=== PATIENT | male | born 1960 | race Hispanic/Latino ===

== ENCOUNTER 2017-09-24 12:13 | Inpatient (IN) | payer OTHER ==
[~2017-09-24] VITALS: Ht 180.3 cm; Wt 75.1 kg
[~2017-09-24 12:13] MED LIST: ASPI-1012 PO; CELE200 PO; DARU1TAB PO; EMTR1TAB12 PO; FERR324T10 PO; LACT1CAP58 PO; OXYC5 PO; PREG25 PO; Polyethylene Glycol 3350 PO; RITO100T PO; VANC125C12 PO
[2017-09-24] MEDS ORDERED: SODIUM CHLORIDE 0.9% 1000ML 1,000 ML IV ONE ×3 (12:58→16:03)
[2017-09-24 13:08] LABS: BASOPHILS % (AUTO) 0.4 % (0.0-5.0); EOSINOPHILS % (AUTO) 0.4 % (0.0-8.0); HEMATOCRIT 37.2 % (42-54); LYMPHOCYTES % (AUTO) 20.4 % (21.0-51.0); MEAN CORPUSCULAR HEMOGLOBIN 35.7 pg (27.0-33.0); MEAN CORPUSCULAR HGB CONC 34.3 g/dL (32.0-36.0); MEAN CORPUSCULAR VOLUME 104.2 fL (79-99); MONOCYTES % (AUTO) 16.8 % (3.0-13.0); PLATELET COUNT (AUTO) 309 K/uL (130-400); RED BLOOD CELL COUNT(AUTO) 3.57 MIL/uL (4.50-6.20); RED CELL DISTRIBUTION WIDTH 14.1 % (11.0-15.5); WHITE BLOOD COUNT (AUTO) 9.7 K/uL (4.8-10.8)
[2017-09-24 13:20] LABS: POTASSIUM 3.8 mmol/L (3.5-5.1)
[2017-09-24 13:21] LABS: RAPID GROUP A STREP NEGATIVE (NEGATIVE)
[2017-09-24 13:25] LABS: ALBUMIN 3.1 g/dL (3.5-5.0); BILIRUBIN,TOTAL 1.1 mg/dL (0.2-1.0)
[2017-09-24 13:41] LABS: APPEARANCE,URINE Clear (CLEAR); BILIRUBIN,URINE Negative (NEGATIVE); COLOR,URINE Dark Yellow (YELLOW); GLUCOSE, URINE (UA) TRACE mg/dL (NEGATIVE); KETONES,URINE Negative (NEGATIVE); LEUKOCYTE ESTERASE ,URINE Negative (NEGATIVE); NITRATE,URINE Negative (NEGATIVE); OCCULT BLOOD,URINE Small (NEGATIVE); PROTEIN,URINE POS 2+ (NEGATIVE)
[2017-09-24 13:58] LABS: BACTERIA,URINE Rare /HPF (None Seen); MUCUS,URINE Rare LPF (None Seen); RBC,URINE 0-1 /HPF (0-1); SQUAMOUS EPITHELIAL CELL,UR Rare /LPF (0-2)
[2017-09-24] MEDS: SODIUM CHLORIDE 0.9% 1000ML 1,000 ML IV SCH ×2 (14:33→23:50)
[2017-09-24] MEDS ORDERED: ACETAMINOPHEN 325 MG TAB PO PRN ×2 (14:45)
[2017-09-24] MEDS ORDERED: MAG HYDROX/AL HYDROX/SIMETH ES 30 ML SUSP UDCUP PO PRN (14:45)
[2017-09-24] MEDS ORDERED: ONDANSETRON HCL 4 MG/2 ML VIAL ONE (14:50)
[2017-09-24] MEDS ORDERED: ZOSYN 3.375GM+NS 50ML 50 ML IV ONE (14:50)
[2017-09-24] MEDS ORDERED: KETOROLAC TROMETHAMINE 30MG/ML ONE (14:51)
[2017-09-24] MEDS ORDERED: MORPHINE SULFATE 4 MG/1ML SYG ONE (14:51)
[2017-09-24 17:09] VITALS: BP 131/78
[2017-09-24 19:30] VITALS: BP 115/72
[2017-09-24] MEDS: ONDANSETRON HCL 4 MG/2 ML VIAL IV PRN (20:41)
[2017-09-24] MEDS: LEVOFLOXACIN 500 MG/D5W 100 ML 100 ML IV SCH (20:41)
[2017-09-24] MEDS: MEPERIDINE-PF 25 MG/ML SYG IVP PRN (20:42)
[2017-09-24] MEDS ORDERED: LISI-617 PO (20:57)
[2017-09-24 23:30] VITALS: BP 107/69
[2017-09-24] MEDS ORDERED: DEXTROSE 50%-WATER 50 ML DISP.SYRIN IV PRN (23:30)
[2017-09-24] MEDS ORDERED: POTASSIUM CHLORIDE 10% ELIXIR 20 MEQ/15 ML UDCUP PO PRN (23:30)
[2017-09-24] MEDS ORDERED: GLUCAGON 1MG KIT 1 MG ML IM PRN (23:30)
[2017-09-24] MEDS ORDERED: HYDRALAZINE HCL 20 MG/ML VIAL IV PRN (23:30)
[2017-09-25] VITALS (25 sets, daily range): BP systolic 116–188; BP diastolic 56–98
[2017-09-25] MEDS: ONDANSETRON HCL 4 MG/2 ML VIAL IV PRN ×2 (03:58→22:11)
[2017-09-25] MEDS: MEPERIDINE-PF 25 MG/ML SYG IVP PRN (03:59)
[2017-09-25] MEDS: SODIUM CHLORIDE 0.9% 1000ML 1,000 ML IV SCH ×4 (04:02→20:33)
[2017-09-25 05:33] LABS: HEMATOCRIT 29.8 % (42-54); MEAN CORPUSCULAR HEMOGLOBIN 35.7 pg (27.0-33.0); MEAN CORPUSCULAR HGB CONC 34.3 g/dL (32.0-36.0); MEAN CORPUSCULAR VOLUME 103.9 fL (79-99); PLATELET COUNT (AUTO) 196 K/uL (130-400); RED BLOOD CELL COUNT(AUTO) 2.86 MIL/uL (4.50-6.20); RED CELL DISTRIBUTION WIDTH 13.7 % (11.0-15.5); WHITE BLOOD COUNT (AUTO) 5.6 K/uL (4.8-10.8)
[2017-09-25 05:46] LABS: ALBUMIN 2.3 g/dL (3.5-5.0); BILIRUBIN,TOTAL 0.8 mg/dL (0.2-1.0); CREATININE 0.8 mg/dL (0.5-1.5); POTASSIUM 3.8 mmol/L (3.5-5.1); TOTAL PROTEIN, SERUM 6.4 g/dL (6.0-8.3)
[2017-09-25] MEDS: INSULIN HUMULIN R 100 UNIT/ML 3ML SQ SCH ×2 (05:50→18:00)
[2017-09-25 05:59] LABS: HEMOGLOBIN A1C 5.2 % (4.0-6.0)
[2017-09-25] MEDS ORDERED: INSULIN HUMULIN R 100 UNIT/ML 3ML SQ SCH (07:30)
[2017-09-25] MEDS: PANTOPRAZOLE SODIUM 40 MG TABLET.DR PO SCH (09:00)
[2017-09-25] MEDS ORDERED: PANTOPRAZOLE SODIUM 40 MG TABLET.DR PO SCH (09:00)
[2017-09-25] MEDS ORDERED: HEPARIN SODIUM 1000UNIT/ML 10ML VIAL ONE (10:08)
[2017-09-25] MEDS ORDERED: DEXAMETHASONE SOD PHOSPHATE 10MG/ML 1ML VIAL ONE (10:41)
[2017-09-25] MEDS ORDERED: PROPOFOL 10 MG/ML 20ML VIAL IV ONE (10:41)
[2017-09-25] MEDS ORDERED: LIDOCAINE HCL MPF 1% 5ML VIAL ONE (10:41)
[2017-09-25] MEDS ORDERED: MIDAZOLAM HCL 1 MG/ML 2ML VIAL ONE (10:41)
[2017-09-25] MEDS ORDERED: LIDOCAINE PF 2% 5ML ABBOJECT ONE (10:41)
[2017-09-25] MEDS ORDERED: FENTANYL CITRATE PF 50 MCG/1 ML 2ML VIAL ONE (10:42)
[2017-09-25] MEDS ORDERED: ROCURONIUM BROMIDE 10MG/1ML 5ML VL ONE ×3 (10:44→13:58)
[2017-09-25] MEDS ORDERED: NEOSTIGMINE METHYLSULFATE 1MG/ML IV ONE (10:44)
[2017-09-25] MEDS ORDERED: GLYCOPYRROLATE 0.2 MG/ML 5 ML VIAL ONE (10:44)
[2017-09-25] MEDS: LEVOFLOXACIN 500 MG/D5W 100 ML 100 ML IV SCH ×2 (11:15→14:45)
[2017-09-25] MEDS ORDERED: FENTANYL CITRATE PF 50 MCG/1 ML 5ML AMP IV ONE ×2 (11:23→12:47)
[2017-09-25 13:30] LABS: HEMATOCRIT 30.3 % (42-54)
[2017-09-25 13:39] LABS: INR 1.1 (0.85-1.15); PARTIAL THROMBOPLASTIN TIME 31.3 SEC (26.3-35.5); PROTHROMBIN TIME 11.5 SEC (9.6-11.6)
[2017-09-25] MEDS ORDERED: MORPHINE SULFATE 4 MG/1ML SYG IV PRN (15:15)
[2017-09-25] MEDS ORDERED: NALOXONE HCL 0.4 MG/1 ML ML ONE (15:15)
[2017-09-25 16:02] LABS: MEAN CORPUSCULAR HEMOGLOBIN 35.6 pg (27.0-33.0); MEAN CORPUSCULAR HGB CONC 33.5 g/dL (32.0-36.0); MEAN CORPUSCULAR VOLUME 106.1 fL (79-99); PLATELET COUNT (AUTO) 282 K/uL (130-400); WHITE BLOOD COUNT (AUTO) 10.1 K/uL (4.8-10.8)
[2017-09-25 16:08] LABS: CREATININE 0.9 mg/dL (0.5-1.5); POTASSIUM 4.2 mmol/L (3.5-5.1)
[2017-09-25] MEDS: PROPOFOL 1000 MG/100 ML IV PRN ×2 (18:28→21:35)
[2017-09-25 19:53] LABS: ABG BASE EXCESS -12.4 mmol/L (-2.0-3.0); ABG HCO3 11.8 mmol/L (21.0-28.0); ABG OXYGEN SATURATION 98.8 % (95.0-99.0); ABG PCO2 24 mmHg (35-48)
[2017-09-25] MEDS: METRONIDAZOLE 500MG/100ML BAG 100 ML IV SCH (21:32)
[2017-09-25] MEDS: D5W-1/2 NS/20MEQ KCL 1,000 ML IV SCH (22:06)
[2017-09-26] VITALS (24 sets, daily range): BP systolic 126–179; BP diastolic 63–113
[2017-09-26] MEDS: PROPOFOL 1000 MG/100 ML IV PRN ×4 (00:49→07:57)
[2017-09-26] MEDS: SODIUM CHLORIDE 0.9% 1000ML 1,000 ML IV SCH ×3 (02:00→11:05)
[2017-09-26 04:05] LABS: BASOPHILS % (AUTO) 0.1 % (0.0-5.0); HEMATOCRIT 29.8 % (42-54); LYMPHOCYTES % (AUTO) 8.9 % (21.0-51.0); MEAN CORPUSCULAR HEMOGLOBIN 36.8 pg (27.0-33.0); MEAN CORPUSCULAR VOLUME 104.9 fL (79-99); PLATELET COUNT (AUTO) 231 K/uL (130-400); RED BLOOD CELL COUNT(AUTO) 2.84 MIL/uL (4.50-6.20); RED CELL DISTRIBUTION WIDTH 13.8 % (11.0-15.5); WHITE BLOOD COUNT (AUTO) 10.9 K/uL (4.8-10.8)
[2017-09-26 04:18] LABS: ALBUMIN 2.4 g/dL (3.5-5.0); BILIRUBIN,TOTAL 0.6 mg/dL (0.2-1.0); CREATININE 0.9 mg/dL (0.5-1.5); POTASSIUM 3.7 mmol/L (3.5-5.1); TOTAL PROTEIN, SERUM 6.6 g/dL (6.0-8.3)
[2017-09-26] MEDS: D5W-1/2 NS/20MEQ KCL 1,000 ML IV SCH ×2 (04:29→13:36)
[2017-09-26] MEDS: METRONIDAZOLE 500MG/100ML BAG 100 ML IV SCH ×3 (05:30→21:43)
[2017-09-26] MEDS: INSULIN HUMULIN R 100 UNIT/ML 3ML SQ SCH ×5 (06:43→23:51)
[2017-09-26] MEDS ORDERED: DARU1TAB PO (08:28)
[2017-09-26] MEDS: PANTOPRAZOLE SODIUM 40 MG TABLET.DR PO SCH (09:22)
[2017-09-26] MEDS: LISINOPRIL 5 MG TABLET PO SCH (09:22)
[2017-09-26] MEDS: DESCOVY PO SCH (09:54)
[2017-09-26] MEDS: PREZCOBIX PO SCH (09:54)
[2017-09-26] MEDS ORDERED: SODIUM CHLORIDE 0.9% 1000ML 1,000 ML IV ONE (11:04)
[2017-09-26] MEDS: MORPHINE SULFATE 2 MG/ML 1ML SYG IV PRN ×2 (11:05→16:03)
[2017-09-26] MEDS: LEVOFLOXACIN 500 MG/D5W 100 ML 100 ML IV SCH (14:06)
[2017-09-26 15:15] LABS: ABG BASE EXCESS -6.2 mmol/L (-2.0-3.0); ABG HCO3 16.8 mmol/L (21.0-28.0); ABG OXYGEN SATURATION 99.2 % (95.0-99.0); ABG PCO2 28 mmHg (35-48)
[2017-09-26] MEDS ORDERED: SODIUM BICARB 50MEQ 50ML VIAL IV ONE (15:45)
[2017-09-26] MEDS: ACETAMINOPHEN-CODEINE 300/30MG TAB PO PRN (21:43)
[2017-09-26] MEDS: ONDANSETRON HCL 4 MG/2 ML VIAL IV PRN (22:12)
[2017-09-26] MEDS: GUAIFENESIN-DM 200/20 MG 10 ML PO PRN (23:54)
[2017-09-26] MEDS: MEPERIDINE-PF 25 MG/ML SYG IVP PRN (23:56)
[2017-09-27] VITALS (14 sets, daily range): BP systolic 100–153; BP diastolic 57–97
[2017-09-27] MEDS: GUAIFENESIN-DM 200/20 MG 10 ML PO PRN ×2 (04:20→13:07)
[2017-09-27] MEDS: MEPERIDINE-PF 25 MG/ML SYG IVP PRN ×2 (04:20→20:59)
[2017-09-27 05:33] LABS: BASOPHILS % (AUTO) 0.1 % (0.0-5.0); HEMATOCRIT 29.2 % (42-54); LYMPHOCYTES % (AUTO) 15.6 % (21.0-51.0); MEAN CORPUSCULAR VOLUME 102.8 fL (79-99); MONOCYTES % (AUTO) 9.8 % (3.0-13.0); NEUTROPHILS % (AUTO) 74.5 % (40.0-77.0); PLATELET COUNT (AUTO) 276 K/uL (130-400); RED BLOOD CELL COUNT(AUTO) 2.84 MIL/uL (4.50-6.20); RED CELL DISTRIBUTION WIDTH 13.8 % (11.0-15.5); WHITE BLOOD COUNT (AUTO) 10.3 K/uL (4.8-10.8)
[2017-09-27 05:58] LABS: ALBUMIN 2.3 g/dL (3.5-5.0); BILIRUBIN,TOTAL 0.7 mg/dL (0.2-1.0); CREATININE 0.7 mg/dL (0.5-1.5); POTASSIUM 3.7 mmol/L (3.5-5.1); TOTAL PROTEIN, SERUM 6.5 g/dL (6.0-8.3)
[2017-09-27] MEDS: INSULIN HUMULIN R 100 UNIT/ML 3ML SQ SCH ×3 (06:00→18:00)
[2017-09-27] MEDS: METRONIDAZOLE 500MG/100ML BAG 100 ML IV SCH ×3 (06:39→20:58)
[2017-09-27] MEDS: D5W-1/2 NS/20MEQ KCL 1,000 ML IV SCH ×3 (06:39→21:49)
[2017-09-27] MEDS: PREZCOBIX PO SCH (09:08)
[2017-09-27] MEDS: DESCOVY PO SCH (09:08)
[2017-09-27] MEDS: LISINOPRIL 5 MG TABLET PO SCH (09:11)
[2017-09-27] MEDS: PANTOPRAZOLE SODIUM 40 MG TABLET.DR PO SCH (09:12)
[2017-09-27] MEDS: LEVOFLOXACIN 500 MG/D5W 100 ML 100 ML IV SCH (13:07)
[2017-09-28] VITALS (7 sets, daily range): BP systolic 128–150; BP diastolic 75–98
[2017-09-28] MEDS: GUAIFENESIN-DM 200/20 MG 10 ML PO PRN (04:07)
[2017-09-28 04:25] LABS: BASOPHILS % (AUTO) 0.1 % (0.0-5.0); EOSINOPHILS % (AUTO) 0.2 % (0.0-8.0); HEMATOCRIT 28.6 % (42-54); LYMPHOCYTES % (AUTO) 23.2 % (21.0-51.0); MEAN CORPUSCULAR HEMOGLOBIN 37.6 pg (27.0-33.0); MEAN CORPUSCULAR HGB CONC 36.4 g/dL (32.0-36.0); MEAN CORPUSCULAR VOLUME 103.1 fL (79-99); MONOCYTES % (AUTO) 9.7 % (3.0-13.0); NEUTROPHILS % (AUTO) 66.8 % (40.0-77.0); PLATELET COUNT (AUTO) 225 K/uL (130-400); RED BLOOD CELL COUNT(AUTO) 2.77 MIL/uL (4.50-6.20); RED CELL DISTRIBUTION WIDTH 13.3 % (11.0-15.5); WHITE BLOOD COUNT (AUTO) 8.8 K/uL (4.8-10.8)
[2017-09-28 04:37] LABS: CREATININE 0.8 mg/dL (0.5-1.5); POTASSIUM 3.2 mmol/L (3.5-5.1)
[2017-09-28] MEDS: METRONIDAZOLE 500MG/100ML BAG 100 ML IV SCH ×3 (05:10→21:56)
[2017-09-28] MEDS: INSULIN HUMULIN R 100 UNIT/ML 3ML SQ SCH ×5 (06:00→23:29)
[2017-09-28] MEDS: POTASSIUM CHLORIDE 20MEQ/100ML 100 ML IV PRN ×2 (06:26→11:16)
[2017-09-28] MEDS: LIDOCAINE HCL-MPF 1% 2ML VIAL IVP PRN ×2 (06:26→11:17)
[2017-09-28] MEDS: LISINOPRIL 5 MG TABLET PO SCH (09:00)
[2017-09-28] MEDS: PANTOPRAZOLE SODIUM 40 MG TABLET.DR PO SCH (09:00)
[2017-09-28] MEDS: DESCOVY PO SCH (09:00)
[2017-09-28] MEDS: PREZCOBIX PO SCH (09:00)
[2017-09-28] MEDS: LEVOFLOXACIN 500 MG/D5W 100 ML 100 ML IV SCH (09:26)
[2017-09-28] MEDS: D5W-1/2 NS/20MEQ KCL 1,000 ML IV SCH (11:17)
[2017-09-28] MEDS: MEPERIDINE-PF 25 MG/ML SYG IVP PRN ×2 (12:50→22:34)
[2017-09-28] MEDS: ONDANSETRON HCL 4 MG/2 ML VIAL IV PRN (12:50)
[2017-09-29 03:57] VITALS: BP 145/83
[2017-09-29 04:32] LABS: HEMATOCRIT 31.8 % (42-54); MEAN CORPUSCULAR HEMOGLOBIN 35.3 pg (27.0-33.0); MEAN CORPUSCULAR HGB CONC 34.5 g/dL (32.0-36.0); MEAN CORPUSCULAR VOLUME 102.3 fL (79-99); PLATELET COUNT (AUTO) 229 K/uL (130-400); RED BLOOD CELL COUNT(AUTO) 3.11 MIL/uL (4.50-6.20); RED CELL DISTRIBUTION WIDTH 13.4 % (11.0-15.5); WHITE BLOOD COUNT (AUTO) 8.7 K/uL (4.8-10.8)
[2017-09-29 04:42] LABS: CREATININE 0.8 mg/dL (0.5-1.5); POTASSIUM 3.4 mmol/L (3.5-5.1)
[2017-09-29] MEDS: INSULIN HUMULIN R 100 UNIT/ML 3ML SQ SCH ×4 (05:26→23:31)
[2017-09-29] MEDS: METRONIDAZOLE 500MG/100ML BAG 100 ML IV SCH ×3 (05:26→20:22)
[2017-09-29 07:11] VITALS: BP 135/85
[2017-09-29] MEDS: DESCOVY PO SCH (07:14)
[2017-09-29] MEDS: LISINOPRIL 5 MG TABLET PO SCH (07:14)
[2017-09-29] MEDS: PANTOPRAZOLE SODIUM 40 MG TABLET.DR PO SCH (07:14)
[2017-09-29] MEDS: PREZCOBIX PO SCH (07:14)
[2017-09-29] MEDS: LEVOFLOXACIN 500 MG/D5W 100 ML 100 ML IV SCH (08:52)
[2017-09-29 11:07] VITALS: BP 135/78
[2017-09-29] MEDS: ONDANSETRON HCL 4 MG/2 ML VIAL IV PRN (14:36)
[2017-09-29] MEDS: MEPERIDINE-PF 25 MG/ML SYG IVP PRN ×2 (14:37→23:35)
[2017-09-29] MEDS: D5W-1/2 NS/20MEQ KCL 1,000 ML IV SCH (14:42)
[2017-09-29 16:20] VITALS: BP 130/84
[2017-09-29] MEDS ORDERED: CLINIMIX E 5%-15% 2,000 ML IV SCH (18:00)
[2017-09-29 19:06] VITALS: BP 147/89
[2017-09-29 23:37] VITALS: BP 141/90
[2017-09-30] VITALS (7 sets, daily range): BP systolic 113–131; BP diastolic 78–91
[2017-09-30 04:51] LABS: HEMATOCRIT 32.7 % (42-54); MEAN CORPUSCULAR HEMOGLOBIN 36.1 pg (27.0-33.0); MEAN CORPUSCULAR HGB CONC 33.9 g/dL (32.0-36.0); MEAN CORPUSCULAR VOLUME 106.6 fL (79-99); PLATELET COUNT (AUTO) 218 K/uL (130-400); RED BLOOD CELL COUNT(AUTO) 3.07 MIL/uL (4.50-6.20); RED CELL DISTRIBUTION WIDTH 13.4 % (11.0-15.5); WHITE BLOOD COUNT (AUTO) 8.8 K/uL (4.8-10.8)
[2017-09-30] MEDS: METRONIDAZOLE 500MG/100ML BAG 100 ML IV SCH ×3 (05:27→20:35)
[2017-09-30] MEDS: PANTOPRAZOLE SODIUM 40 MG TABLET.DR PO SCH (07:19)
[2017-09-30] MEDS: DESCOVY PO SCH (07:19)
[2017-09-30] MEDS: PREZCOBIX PO SCH (07:19)
[2017-09-30] MEDS: LISINOPRIL 5 MG TABLET PO SCH (07:19)
[2017-09-30 07:25] LABS: CREATININE 0.6 mg/dL (0.5-1.5); POTASSIUM 3.7 mmol/L (3.5-5.1)
[2017-09-30] MEDS: LEVOFLOXACIN 500 MG/D5W 100 ML 100 ML IV SCH (07:49)
[2017-09-30] MEDS: ONDANSETRON HCL 4 MG/2 ML VIAL IV PRN (09:00)
[2017-09-30] MEDS: MEPERIDINE-PF 25 MG/ML SYG IVP PRN (09:02)
[2017-09-30] MEDS: INSULIN HUMULIN R 100 UNIT/ML 3ML SQ SCH ×3 (12:00→20:38)
[2017-09-30] MEDS: GUAIFENESIN-DM 200/20 MG 10 ML PO PRN (14:40)
[2017-09-30] MEDS: MORPHINE SULFATE 2 MG/ML 1ML SYG IV PRN ×2 (16:45→23:17)
[2017-10-01 03:45] VITALS: BP 107/74
[2017-10-01] MEDS: METRONIDAZOLE 500MG/100ML BAG 100 ML IV SCH ×3 (05:21→22:00)
[2017-10-01] MEDS: INSULIN HUMULIN R 100 UNIT/ML 3ML SQ SCH ×4 (06:00→23:26)
[2017-10-01 06:43] LABS: MEAN CORPUSCULAR VOLUME 102.8 fL (79-99); PLATELET COUNT (AUTO) 192 K/uL (130-400); RED BLOOD CELL COUNT(AUTO) 3.21 MIL/uL (4.50-6.20); RED CELL DISTRIBUTION WIDTH 13.5 % (11.0-15.5); WHITE BLOOD COUNT (AUTO) 8.9 K/uL (4.8-10.8)
[2017-10-01 07:00] LABS: CREATININE 0.8 mg/dL (0.5-1.5); POTASSIUM 3.7 mmol/L (3.5-5.1)
[2017-10-01 08:00] VITALS: BP 127/79
[2017-10-01] MEDS: DESCOVY PO SCH (09:00)
[2017-10-01] MEDS: PREZCOBIX PO SCH (09:00)
[2017-10-01] MEDS: PANTOPRAZOLE SODIUM 40 MG TABLET.DR PO SCH (09:00)
[2017-10-01] MEDS: LISINOPRIL 5 MG TABLET PO SCH (09:00)
[2017-10-01] MEDS: LEVOFLOXACIN 500 MG/D5W 100 ML 100 ML IV SCH (09:56)
[2017-10-01] MEDS: MEPERIDINE-PF 25 MG/ML SYG IVP PRN ×3 (10:02→23:14)
[2017-10-01 11:00] VITALS: BP 118/77
[2017-10-01] MEDS: PROCALAMINE IV SOLUTION 1,000 ML IV SCH (12:25)
[2017-10-01 16:00] VITALS: BP 102/71
[2017-10-01] MEDS: FAT EMULSIONS 20% 250ML 250 ML IV SCH (17:48)
[2017-10-01 19:50] VITALS: BP 119/81
[2017-10-01 23:40] VITALS: BP 122/72
[2017-10-02] VITALS (7 sets, daily range): BP systolic 109–144; BP diastolic 68–90
[2017-10-02] MEDS: METRONIDAZOLE 500MG/100ML BAG 100 ML IV SCH ×3 (05:54→21:55)
[2017-10-02] MEDS: INSULIN HUMULIN R 100 UNIT/ML 3ML SQ SCH ×4 (06:00→23:54)
[2017-10-02 06:21] LABS: HEMATOCRIT 34.3 % (42-54); MEAN CORPUSCULAR HEMOGLOBIN 36.4 pg (27.0-33.0); MEAN CORPUSCULAR VOLUME 103.9 fL (79-99); PLATELET COUNT (AUTO) 242 K/uL (130-400); RED CELL DISTRIBUTION WIDTH 13.5 % (11.0-15.5); WHITE BLOOD COUNT (AUTO) 9.4 K/uL (4.8-10.8)
[2017-10-02 06:40] LABS: CREATININE 0.8 mg/dL (0.5-1.5)
[2017-10-02] MEDS: PREZCOBIX PO SCH (09:00)
[2017-10-02] MEDS: LISINOPRIL 5 MG TABLET PO SCH (09:00)
[2017-10-02] MEDS: PANTOPRAZOLE SODIUM 40 MG TABLET.DR PO SCH (09:00)
[2017-10-02] MEDS: DESCOVY PO SCH (09:00)
[2017-10-02] MEDS: MEPERIDINE-PF 25 MG/ML SYG IVP PRN ×2 (10:48→23:04)
[2017-10-02] MEDS: LEVOFLOXACIN 500 MG/D5W 100 ML 100 ML IV SCH (10:48)
[2017-10-02 10:50] LABS: CHOLESTEROL 86 mg/dL (<200); HDL CHOLESTEROL 20 mg/dL (29-71); LDL DIRECT 52 mg/dL (0-99); TRIGLYCERIDES 144 mg/dL (30-200)
[2017-10-02] MEDS ORDERED: CLINIMIX E 5%-15% 2,000 ML IV SCH (11:02)
[2017-10-02] MEDS: PROCALAMINE IV SOLUTION 1,000 ML IV SCH (14:52)
[2017-10-02] MEDS ORDERED: LIDOCAINE HCL-MPF 1% 2ML VIAL IVP PRN (17:45)
[2017-10-02] MEDS ORDERED: POTASSIUM CHLORIDE 20MEQ/100ML 100 ML IV PRN (17:45)
[2017-10-03 03:00] VITALS: BP 128/81
[2017-10-03 03:39] LABS: HEMATOCRIT 30.7 % (42-54); MEAN CORPUSCULAR HEMOGLOBIN 35.5 pg (27.0-33.0); MEAN CORPUSCULAR HGB CONC 34.4 g/dL (32.0-36.0); MEAN CORPUSCULAR VOLUME 103.1 fL (79-99); PLATELET COUNT (AUTO) 187 K/uL (130-400); RED BLOOD CELL COUNT(AUTO) 2.97 MIL/uL (4.50-6.20); RED CELL DISTRIBUTION WIDTH 13.6 % (11.0-15.5); WHITE BLOOD COUNT (AUTO) 7.1 K/uL (4.8-10.8)
[2017-10-03 03:57] LABS: ALBUMIN 2.3 g/dL (3.5-5.0); BILIRUBIN,TOTAL 0.4 mg/dL (0.2-1.0); CREATININE 0.7 mg/dL (0.5-1.5); POTASSIUM 3.4 mmol/L (3.5-5.1); TOTAL PROTEIN, SERUM 7.1 g/dL (6.0-8.3)
[2017-10-03] MEDS: POTASSIUM CHLORIDE 20MEQ/100ML 100 ML IV PRN (05:12)
[2017-10-03] MEDS: LIDOCAINE HCL-MPF 1% 2ML VIAL IVP PRN (05:13)
[2017-10-03] MEDS: INSULIN HUMULIN R 100 UNIT/ML 3ML SQ SCH ×3 (06:00→18:00)
[2017-10-03] MEDS: METRONIDAZOLE 500MG/100ML BAG 100 ML IV SCH ×3 (06:01→21:01)
[2017-10-03] MEDS: MEPERIDINE-PF 25 MG/ML SYG IVP PRN ×3 (06:10→21:02)
[2017-10-03] MEDS: LEVOFLOXACIN 500 MG/D5W 100 ML 100 ML IV SCH (07:59)
[2017-10-03 08:02] VITALS: BP 121/82
[2017-10-03] MEDS: PANTOPRAZOLE SODIUM 40 MG TABLET.DR PO SCH (08:08)
[2017-10-03] MEDS: PREZCOBIX PO SCH (08:08)
[2017-10-03] MEDS: LISINOPRIL 5 MG TABLET PO SCH (08:08)
[2017-10-03] MEDS: DESCOVY PO SCH (08:09)
[2017-10-03 11:54] VITALS: BP 113/78
[2017-10-03 16:00] VITALS: BP 111/73
[2017-10-03] MEDS: FAT EMULSIONS 20% 250ML 250 ML IV SCH (18:46)
[2017-10-03 21:30] VITALS: BP 133/86
[2017-10-03 23:55] VITALS: BP 133/74
[2017-10-04] MEDS: PROCALAMINE IV SOLUTION 1,000 ML IV SCH ×2 (00:07→21:17)
[2017-10-04 03:00] VITALS: BP 128/89
[2017-10-04 04:48] LABS: ALBUMIN 2.5 g/dL (3.5-5.0); BILIRUBIN,TOTAL 0.3 mg/dL (0.2-1.0); CREATININE 0.7 mg/dL (0.5-1.5); MAGNESIUM 1.9 mg/dL (1.80-2.40); POTASSIUM 3.4 mmol/L (3.5-5.1); TOTAL PROTEIN, SERUM 7.3 g/dL (6.0-8.3)
[2017-10-04] MEDS: METRONIDAZOLE 500MG/100ML BAG 100 ML IV SCH ×3 (05:00→21:06)
[2017-10-04] MEDS: INSULIN HUMULIN R 100 UNIT/ML 3ML SQ SCH ×5 (06:00→22:39)
[2017-10-04 08:00] VITALS: BP 120/83
[2017-10-04] MEDS: LISINOPRIL 5 MG TABLET PO SCH (09:00)
[2017-10-04] MEDS: PREZCOBIX PO SCH (09:00)
[2017-10-04] MEDS: PANTOPRAZOLE SODIUM 40 MG TABLET.DR PO SCH (09:00)
[2017-10-04] MEDS: DESCOVY PO SCH (09:00)
[2017-10-04] MEDS: LEVOFLOXACIN 500 MG/D5W 100 ML 100 ML IV SCH (09:36)
[2017-10-04] MEDS: MEPERIDINE-PF 25 MG/ML SYG IVP PRN ×2 (09:37→21:22)
[2017-10-04 11:25] VITALS: BP 123/85
[2017-10-04 16:00] VITALS: BP 119/79
[2017-10-04 20:00] VITALS: BP 124/80
[2017-10-05] VITALS (7 sets, daily range): BP systolic 98–126; BP diastolic 63–78
[2017-10-05] MEDS: METRONIDAZOLE 500MG/100ML BAG 100 ML IV SCH ×3 (05:11→20:56)
[2017-10-05] MEDS: MEPERIDINE-PF 25 MG/ML SYG IVP PRN ×3 (05:27→17:29)
[2017-10-05 05:29] LABS: HEMATOCRIT 29.9 % (42-54); MEAN CORPUSCULAR HEMOGLOBIN 36.2 pg (27.0-33.0); MEAN CORPUSCULAR HGB CONC 35.1 g/dL (32.0-36.0); MEAN CORPUSCULAR VOLUME 103.2 fL (79-99); NUCLEATED RED BLOOD CELLS 0.1 % (0.0-0.19); PLATELET COUNT (AUTO) 161 K/uL (130-400); RED CELL DISTRIBUTION WIDTH 13.5 % (11.0-15.5); WHITE BLOOD COUNT (AUTO) 4.9 K/uL (4.8-10.8)
[2017-10-05 05:38] LABS: CREATININE 0.6 mg/dL (0.5-1.5); POTASSIUM 3.1 mmol/L (3.5-5.1)
[2017-10-05] MEDS: INSULIN HUMULIN R 100 UNIT/ML 3ML SQ SCH ×3 (05:48→21:00)
[2017-10-05] MEDS: LEVOFLOXACIN 500 MG/D5W 100 ML 100 ML IV SCH (09:47)
[2017-10-05] MEDS: PANTOPRAZOLE SODIUM 40 MG TABLET.DR PO SCH (09:47)
[2017-10-05] MEDS: LISINOPRIL 5 MG TABLET PO SCH (09:47)
[2017-10-05] MEDS: DESCOVY PO SCH (09:58)
[2017-10-05] MEDS: PREZCOBIX PO SCH (09:58)
[2017-10-05] MEDS: PROCALAMINE IV SOLUTION 1,000 ML IV SCH (13:03)
[2017-10-06 03:42] VITALS: BP 109/75
[2017-10-06] MEDS: METRONIDAZOLE 500MG/100ML BAG 100 ML IV SCH (04:55)
[2017-10-06 05:25] LABS: CREATININE 0.6 mg/dL (0.5-1.5); POTASSIUM 3.3 mmol/L (3.5-5.1)
[2017-10-06] MEDS: INSULIN HUMULIN R 100 UNIT/ML 3ML SQ SCH ×2 (05:34→11:30)
[2017-10-06] MEDS: POTASSIUM CHLORIDE 20 MEQ ERTAB PO PRN (06:15)
[2017-10-06 08:00] VITALS: BP 109/69
[2017-10-06] MEDS: PANTOPRAZOLE SODIUM 40 MG TABLET.DR PO SCH (08:14)
[2017-10-06] MEDS: LISINOPRIL 5 MG TABLET PO SCH (08:14)
[2017-10-06] MEDS: LEVOFLOXACIN 500 MG/D5W 100 ML 100 ML IV SCH (08:14)
[2017-10-06] MEDS: MEPERIDINE-PF 25 MG/ML SYG IVP PRN (08:15)
[2017-10-06] MEDS: DESCOVY PO SCH (09:00)
[2017-10-06] MEDS: RITONAVIR 100 MG TABLET PO SCH (09:00)
[2017-10-06] MEDS: PREZCOBIX PO SCH (09:00)
[2017-10-06 11:44] VITALS: BP 100/69
[2017-10-06] MEDS: ACETAMINOPHEN-CODEINE 300/30MG TAB PO PRN (15:55)
[2017-10-06 16:00] VITALS: BP 108/87
[2017-10-06 20:20] VITALS: BP 93/58
[2017-10-06 23:29] VITALS: BP 111/45
[2017-10-07] MEDS: POTASSIUM CHLORIDE 20 MEQ ERTAB PO PRN ×2 (03:28→05:34)
[2017-10-07 04:09] VITALS: BP 99/60
[2017-10-07 06:10] LABS: CREATININE 0.8 mg/dL (0.5-1.5); POTASSIUM 3.5 mmol/L (3.5-5.1)
[2017-10-07 07:52] VITALS: BP 112/69
[2017-10-07] MEDS: RITONAVIR 100 MG TABLET PO SCH (09:00)
[2017-10-07] MEDS: PANTOPRAZOLE SODIUM 40 MG TABLET.DR PO SCH (09:00)
[2017-10-07] MEDS: DESCOVY PO SCH (09:00)
[2017-10-07] MEDS: PREZCOBIX PO SCH (09:00)
[2017-10-07] MEDS: LEVOFLOXACIN 500 MG/D5W 100 ML 100 ML IV SCH (09:00)
[2017-10-07] MEDS: LISINOPRIL 5 MG TABLET PO SCH (09:00)
[2017-10-07] MEDS ORDERED: CEPH500B PO (09:44)
[2017-10-07] MEDS ORDERED: ACET1TAB12 PO (10:35)
[2017-10-07 11:38] VITALS: BP 104/68
== END 2017-10-07 12:35 | disposition home or self-care (01) | DRG 969 ==
LOC: EDH 12:13 → 3DH 14:33 → EDHIP 14:33 → OBSVTOIN 14:33 → INTOOBSV 14:33 → 3DH 17:34 → 2BH 09-25 17:26 → 2DH 09-27 21:40 → 3AH 09-30 11:38
PROVIDERS: ADMIT Family Medicine; ATTEND Family Medicine
PROC: 0FJ44ZZ Inspection of Gallbladder, Percutaneous Endoscopic Approach (ICD-10-PCS; 2017-09-25)
PROC: 0BH17EZ Insertion of Endotracheal Airway into Trachea, Via Natural or Artificial Opening (ICD-10-PCS; 2017-09-25)
PROC: 0FT40ZZ Resection of Gallbladder, Open Approach (ICD-10-PCS; principal; 2017-09-25 10:53)
PROC: 5A1935Z Respiratory Ventilation, Less than 24 Consecutive Hours (ICD-10-PCS; 2017-09-25 10:53)
PROC: 0F190Z3 Bypass Common Bile Duct to Duodenum, Open Approach (ICD-10-PCS; 2017-09-25 10:53)
PROC: 5A09357 Assistance with Respiratory Ventilation, Less than 24 Consecutive Hours, Continuous Positive Airway Pressure (ICD-10-PCS; 2017-09-26)
DX: B20 Human immunodeficiency virus [HIV] disease (principal); A41.51 Sepsis due to Escherichia coli [E. coli]; J96.00 Acute respiratory failure, unspecified whether with hypoxia or hypercapnia; S31.609A Unspecified open wound of abdominal wall, unspecified quadrant with penetration into peritoneal cavity, initial encounter; G92 Toxic encephalopathy; E44.0 Moderate protein-calorie malnutrition; K80.66 Calculus of gallbladder and bile duct with acute and chronic cholecystitis without obstruction; S36.13XA Injury of bile duct, initial encounter; D50.9 Iron deficiency anemia, unspecified; E11.9 Type 2 diabetes mellitus without complications; K74.60 Unspecified cirrhosis of liver; B18.2 Chronic viral hepatitis C; E78.5 Hyperlipidemia, unspecified; G40.909 Epilepsy, unspecified, not intractable, without status epilepticus; I10 Essential (primary) hypertension; M81.0 Age-related osteoporosis without current pathological fracture; N40.0 Benign prostatic hyperplasia without lower urinary tract symptoms; Z96.649 Presence of unspecified artificial hip joint; Z90.49 Acquired absence of other specified parts of digestive tract; Z68.23 Body mass index [BMI] 23.0-23.9, adult; Z53.31 Laparoscopic surgical procedure converted to open procedure
CPT/HCPCS: 36415; 36600; 71010; 76705; 78226; 80048; 80053; 80061; 81001; 82247; 82803; 82948; 83036; 83690; 83735; 84100; 85025; 85027; 85610; 85730; 86359; 86361; 86850; 86900; 86901; 86922; 87804; 87880; 88304; 88311; 94002; 94003; A9537; C1894; C9113; J1100; J1644; J1815; J1885; J1956; J2001; J2175; J2250; J2270; J2310; J2405; J2543; J2704; J2710; J3010; J3480; J3490; J7030

== ENCOUNTER 2018-02-11 13:04 | Emergency (ER) | payer OTHER ==
[~2018-02-11 13:04] MED LIST changes: +ACET1TAB12 PO; +CEPH500B PO; +LISI-617 PO
[2018-02-11 13:42] LABS: APPEARANCE,URINE Clear (CLEAR); BILIRUBIN,URINE Negative (NEGATIVE); COLOR,URINE Yellow (YELLOW); GLUCOSE, URINE (UA) Negative (NEGATIVE); KETONES,URINE Negative (NEGATIVE); LEUKOCYTE ESTERASE ,URINE Negative (NEGATIVE); NITRATE,URINE Negative (NEGATIVE); OCCULT BLOOD,URINE Moderate (NEGATIVE); PH,URINE 7.5 (5.0-8.0); PROTEIN,URINE Trace (NEGATIVE); UROBILINOGEN,URINE 0.2 mg/dL (0.2-1.0)
[2018-02-11 13:44] LABS: BASOPHILS % (AUTO) 0.3 % (0.0-5.0); HEMATOCRIT 38.4 % (42-54); LYMPHOCYTES % (AUTO) 45.3 % (21.0-51.0); MEAN CORPUSCULAR HEMOGLOBIN 34.4 pg (27.0-33.0); MEAN CORPUSCULAR HGB CONC 34.8 g/dL (32.0-36.0); MONOCYTES % (AUTO) 8.3 % (3.0-13.0); NEUTROPHILS % (AUTO) 45.1 % (40.0-77.0); NUCLEATED RED BLOOD CELLS 0.1 % (0.0-0.19); PLATELET COUNT (AUTO) 220 K/uL (130-400); RED BLOOD CELL COUNT(AUTO) 3.88 MIL/uL (4.50-6.20); RED CELL DISTRIBUTION WIDTH 14.2 % (11.0-15.5); WHITE BLOOD COUNT (AUTO) 5.4 K/uL (4.8-10.8)
[2018-02-11 13:55] LABS: CREATININE 0.8 mg/dL (0.5-1.5); POTASSIUM 3.9 mmol/L (3.5-5.1)
[2018-02-11 13:58] LABS: BACTERIA,URINE Few /HPF (None Seen); FINE GRANULAR CASTS,URINE 0-2 /LPF (None Seen); RBC,URINE 26-50 /HPF (0-1); SQUAMOUS EPITHELIAL CELL,UR 0-2 /HPF (0-2); WBC,URINE 0-1 /HPF (0-1)
[2018-02-11 14:00] LABS: ALBUMIN 3.7 g/dL (3.5-5.0); BILIRUBIN,TOTAL 0.4 mg/dL (0.2-1.0)
== END 2018-02-11 15:16 | disposition home or self-care (01) ==
LOC: EDH 13:04
DX: R10.9 Unspecified abdominal pain (principal); M81.0 Age-related osteoporosis without current pathological fracture; Z21 Asymptomatic human immunodeficiency virus [HIV] infection status
CPT/HCPCS: 36415; 74176; 80053; 81001; 85025

== ENCOUNTER 2020-10-05 05:29 | Inpatient (IN) | payer OTHER ==
[~2020-10-05] VITALS: Ht 180.3 cm; Wt 84.0 kg
[~2020-10-05 05:29] MED LIST changes: -LISI-617 PO; +LISI5TAB21 PO
[2020-10-05] MEDS ORDERED: ONDANSETRON 4MG INJ ONE ×2 (06:07→09:25)
[2020-10-05] MEDS ORDERED: 0.9%NACL 100ML 100 ML IV ONE (06:08)
[2020-10-05] MEDS ORDERED: ZOSYN 3.375GM+NS 50ML 50 ML IV ONE (06:08)
[2020-10-05 06:13] LABS: BASOPHILS % (AUTO) 0.2 % (0.0-5.0); EOSINOPHILS % (AUTO) 0.2 % (0.0-8.0); HEMATOCRIT 48.6 % (42-54); LYMPHOCYTES % (AUTO) 13.2 % (21.0-51.0); MEAN CORPUSCULAR HGB CONC 35.2 g/dL (32.0-36.0); MEAN CORPUSCULAR VOLUME 102.3 fL (79-99); MONOCYTES % (AUTO) 4.1 % (3.0-13.0); NEUTROPHILS % (AUTO) 81.7 % (40.0-77.0); PLATELET COUNT (AUTO) 428 K/uL (130-400); RED BLOOD CELL COUNT(AUTO) 4.75 MIL/uL (4.50-6.20); WHITE BLOOD COUNT (AUTO) 15.8 K/uL (4.8-10.8)
[2020-10-05 06:27] LABS: INR 1.07 (0.85-1.15); PROTHROMBIN TIME 11.4 SEC (9.6-11.6)
[2020-10-05 06:29] LABS: PARTIAL THROMBOPLASTIN TIME 25.7 SEC (26.3-35.5)
[2020-10-05] MEDS ORDERED: FENTANYL CITRATE PF 50 MCG/1 ML 2ML VIAL ONE (06:38)
[2020-10-05 06:54] LABS: ALANINE AMINOTRANSFERASE 37 U/L (12-78); ASPARTATE AMINOTRANSFERASE 33 U/L (10-37); BILIRUBIN,TOTAL 0.8 mg/dL (0.2-1.0); CARBON DIOXIDE 20 mmol/L (21-32); CHLORIDE 99 mmol/L (101-111); CREATINE KINASE, TOTAL 319 U/L (21-232); CREATININE 2.4 mg/dL (0.5-1.5); GLOMERULAR FILTR. RATE CALC 30 mL/min (>60); GLUCOSE,RANDOM 183 mg/dL (70-105); LIPASE 111 U/L (114-286); MYOGLOBIN 1652 ng/mL (10-92); POTASSIUM 4.6 mmol/L (3.5-5.1); SODIUM SERUM 140 mmol/L (136-145); TOTAL PROTEIN, SERUM 10.4 g/dL (6.0-8.3); TROPONIN I < 0.04 ng/mL (0.00-0.06); UREA NITROGEN, BLOOD 21 mg/dL (7-18)
[2020-10-05 08:28] LABS: APPEARANCE,URINE Clear (CLEAR); BILIRUBIN,URINE Negative (NEGATIVE); COLOR,URINE Yellow (YELLOW); GLUCOSE, URINE (UA) >=1000 mg/dL (NEGATIVE); KETONES,URINE Negative (NEGATIVE); LEUKOCYTE ESTERASE ,URINE Negative (NEGATIVE); NITRATE,URINE Negative (NEGATIVE); OCCULT BLOOD,URINE Large (NEGATIVE); PH,URINE 6.5 (5.0-8.0); PROTEIN,URINE 300 mg/dL (NEGATIVE); UROBILINOGEN,URINE 0.2 mg/dL (0.2-1.0)
[2020-10-05] MEDS ORDERED: POTASSIUM CHLORIDE 10MEQ/100ML 100 ML IV PRN (08:30)
[2020-10-05] MEDS ORDERED: DOCUSATE SODIUM 100 MG CAP PO PRN (08:30)
[2020-10-05] MEDS ORDERED: VANCOMYCIN KIT 1 GM/250 ML IV.KIT IV SCH (08:30)
[2020-10-05] MEDS ORDERED: LIDOCAINE HCL-MPF 1% 2ML VIAL IV PRN (08:30)
[2020-10-05] MEDS ORDERED: RENAL DOSE IV PRN (08:30)
[2020-10-05] MEDS ORDERED: GLUCAGON 1MG KIT 1 MG ML IM PRN (08:30)
[2020-10-05] MEDS ORDERED: POTASSIUM CHLORIDE 10% ELIXIR 20 MEQ/15 ML UDCUP PO PRN (08:30)
[2020-10-05] MEDS ORDERED: ACETAMINOPHEN 325 MG TAB PO PRN (08:30)
[2020-10-05] MEDS ORDERED: VANCOMYCIN PROTOCOL PER PHARMACY IV SCH (08:30)
[2020-10-05] MEDS ORDERED: HYDROCODONE/ACETAMINOPHEN 7.5/325 MG TAB PO PRN (08:30)
[2020-10-05] MEDS ORDERED: ACETAMINOPHEN 650 MG SUPPOSITORY RC PRN (08:30)
[2020-10-05] MEDS ORDERED: KCL 20 MEQ ERTAB PO PRN (08:30)
[2020-10-05] MEDS ORDERED: ONDANSETRON 4MG INJ IVP PRN (08:30)
[2020-10-05] MEDS ORDERED: TRAMADOL HCL 50 MG TABLET PO PRN (08:30)
[2020-10-05] MEDS ORDERED: CEFEPIME HCL 1 GM VIAL IVP SCH (08:30)
[2020-10-05] MEDS ORDERED: DEXTROSE 50%-WATER 50 ML DISP.SYRIN IV PRN (08:30)
[2020-10-05 08:33] LABS: BACTERIA,URINE Rare /HPF (None Seen); SQUAMOUS EPITHELIAL CELL,UR Rare /HPF (0-2); WBC,URINE 0-1 /HPF (0-1)
[2020-10-05] MEDS ORDERED: FAMOTIDINE 20MG TAB ONE (09:24)
[2020-10-05] MEDS ORDERED: CEFEPIME HCL 2 GM VIAL ONE (09:25)
[2020-10-05] MEDS ORDERED: HYDROCODONE/ACETAMINOPHEN 7.5/325 MG TAB ONE ×2 (09:25→23:14)
[2020-10-05 09:28] LABS: HEMOGLOBIN A1C 5.3 % (4.0-6.0)
[2020-10-05 09:54] LABS: THYROID STIMULATING HORMONE 2.52 uIU/mL (0.36-3.74)
[2020-10-05] MEDS ORDERED: IPRATROPIUM/ALBUTEROL SULFATE 3 ML SOLUTION IH SCH (10:00)
[2020-10-05] MEDS ORDERED: METOCLOPRAMIDE 10 MG/2 ML VIAL ONE (10:03)
[2020-10-05] MEDS ORDERED: METOCLOPRAMIDE 10 MG/2 ML VIAL IVP PRN (10:15)
[2020-10-05] MEDS ORDERED: SOLU-MEDROL 40MG VIAL IVP SCH (11:45)
[2020-10-05] MEDS ORDERED: PHARMACY COMMUNICATION MISC SCH (11:45)
[2020-10-05] MEDS ORDERED: MORPHINE 2 MG SYG ONE ×2 (11:48→17:57)
[2020-10-05] MEDS ORDERED: SODIUM BICARB 50MEQ 50ML VIAL 150 MEQ in DEXTROSE 5%-WATER 1,000 ML IV SCH (12:00)
[2020-10-05] MEDS ORDERED: MORPHINE 4 MG SYG IVP PRN (12:00)
[2020-10-05] MEDS ORDERED: MORPHINE 2 MG SYG IVP PRN (12:00)
[2020-10-05] MEDS ORDERED: SOLU-MEDROL 125MG VIAL ONE (12:58)
[2020-10-05 14:16] LABS: AMPHET/METH SCREEN,URINE NEGATIVE (NEGATIVE); BARBITURATE SCREEN, URINE NEGATIVE (NEGATIVE); BENZODIAZEPINES SCREEN,URINE NEGATIVE (NEGATIVE); CANNABINOID SCREEN,URINE NEGATIVE (NEGATIVE); COCAINE SCREEN,URINE NEGATIVE (NEGATIVE); OPIATE SCREEN,URINE POSITIVE (NEGATIVE); PHENCYCLIDINE SCREEN,URINE NEGATIVE (NEGATIVE)
[2020-10-05] MEDS ORDERED: VANCOMYCIN 1G/250ML KIT 250 ML IV ONE (18:26)
[2020-10-05] MEDS ORDERED: AZITHROMYCIN 500MG+NS 250ML 250 ML IV SCH (20:30)
[2020-10-05] MEDS ORDERED: SOLU-MEDROL 40MG VIAL ONE (21:25)
[2020-10-05] MEDS ORDERED: CEFEPIME HCL 1 GM VIAL ONE (21:25)
[2020-10-05] MEDS ORDERED: AZITHROMYCIN 500MG+NS 250ML 250 ML IV ONE (23:13)
[2020-10-06 05:11] LABS: ABG BASE EXCESS -0.2 mmol/L (-2.0-3.0); ABG HCO3 23.6 mmol/L (21.0-28.0); ABG OXYGEN SATURATION 96.1 % (95.0-99.0); ABG PCO2 36 mmHg (35-48)
[2020-10-06 05:44] LABS: BASOPHILS % (AUTO) 0.1 % (0.0-5.0); EOSINOPHILS % (AUTO) 1.6 % (0.0-8.0); HEMATOCRIT 33.7 % (42-54); LYMPHOCYTES % (AUTO) 17.5 % (21.0-51.0); MEAN CORPUSCULAR HEMOGLOBIN 35.3 pg (27.0-33.0); MEAN CORPUSCULAR HGB CONC 33.8 g/dL (32.0-36.0); MEAN CORPUSCULAR VOLUME 104.3 fL (79-99); MONOCYTES % (AUTO) 2.6 % (3.0-13.0); NEUTROPHILS % (AUTO) 77.8 % (40.0-77.0); PLATELET COUNT (AUTO) 222 K/uL (130-400); RED BLOOD CELL COUNT(AUTO) 3.23 MIL/uL (4.50-6.20); RED CELL DISTRIBUTION WIDTH 13.4 % (11.0-15.5); WHITE BLOOD COUNT (AUTO) 9.3 K/uL (4.8-10.8)
[2020-10-06 06:00] LABS: CREATININE 0.9 mg/dL (0.5-1.5); MAGNESIUM 1.5 mg/dL (1.80-2.40); PHOSPHORUS 2.7 mg/dL (2.5-4.9); POTASSIUM 3.1 mmol/L (3.5-5.1)
[2020-10-06] MEDS: FAMOTIDINE 20MG TAB PO SCH (09:00)
[2020-10-06] MEDS: ENOXAPARIN SODIUM 40 MG/0.4 ML SYRINGE SQ SCH (09:00)
[2020-10-06] MEDS ORDERED: CEFEPIME HCL 1 GM VIAL ONE (09:11)
[2020-10-06] MEDS ORDERED: KCL 20 MEQ ERTAB PO ONE (09:11)
[2020-10-06] MEDS ORDERED: ENOXAPARIN SODIUM 40 MG/0.4 ML SYRINGE SQ ONE (09:12)
[2020-10-06] MEDS ORDERED: 0.9%NACL 1000ML 1,000 ML IV ONE (09:14)
[2020-10-06] MEDS ORDERED: LIDOCAINE HCL-MPF 1% 2ML VIAL IV PRN ×2 (09:30)
[2020-10-06] MEDS ORDERED: KCL 20 MEQ ERTAB PO PRN (09:30)
[2020-10-06] MEDS ORDERED: POTASSIUM CHLORIDE 20MEQ/100ML 100 ML IV PRN ×2 (09:30)
[2020-10-06] MEDS ORDERED: POTASSIUM CHLORIDE 10% ELIXIR 20 MEQ/15 ML UDCUP PO PRN (09:30)
[2020-10-06] MEDS ORDERED: GUAIFENESIN-CODEINE 5 ML SYRUP PO PRN (09:30)
[2020-10-06] MEDS ORDERED: ACETAMINOPHEN 325 MG TAB ONE (10:12)
[2020-10-06] MEDS ORDERED: GUAIFENESIN-CODEINE 5 ML SYRUP ONE ×2 (10:12→17:23)
[2020-10-06] MEDS ORDERED: DARU1TAB3 PO (13:01)
[2020-10-06] MEDS ORDERED: MULT-1203 PO (13:01)
[2020-10-06] MEDS ORDERED: FISH1CAP20 PO (13:01)
[2020-10-06] MEDS ORDERED: MORPHINE 2 MG SYG ONE (15:27)
[2020-10-06] MEDS ORDERED: POTASSIUM CHLORIDE 10% ELIXIR 20 MEQ/15 ML UDCUP ONE (15:27)
[2020-10-06] MEDS: SOLU-MEDROL 40MG VIAL IVP SCH (20:45)
[2020-10-06] MEDS: CEFEPIME HCL 1 GM VIAL IVP SCH (21:00)
[2020-10-06] MEDS ORDERED: MORPHINE 4 MG SYG ONE (21:46)
[2020-10-06] MEDS: ALBUTEROL INHALER 90MCG/INH IH SCH (22:00)
[2020-10-07 00:42] VITALS: BP 148/86
[2020-10-07] MEDS: VANCOMYCIN 1G/250ML KIT 250 ML IV SCH ×2 (01:22→09:47)
[2020-10-07] MEDS: ALBUTEROL INHALER 90MCG/INH IH SCH ×3 (02:00→10:00)
[2020-10-07 04:19] VITALS: BP 122/76
[2020-10-07 04:25] LABS: HEMATOCRIT 30.6 % (42-54); MEAN CORPUSCULAR HEMOGLOBIN 35.8 pg (27.0-33.0); MEAN CORPUSCULAR HGB CONC 33.7 g/dL (32.0-36.0); MEAN CORPUSCULAR VOLUME 106.3 fL (79-99); PLATELET COUNT (AUTO) 188 K/uL (130-400); RED BLOOD CELL COUNT(AUTO) 2.88 MIL/uL (4.50-6.20); RED CELL DISTRIBUTION WIDTH 13.2 % (11.0-15.5); WHITE BLOOD COUNT (AUTO) 7.2 K/uL (4.8-10.8)
[2020-10-07 04:43] LABS: CREATININE 0.8 mg/dL (0.5-1.5); POTASSIUM 3.6 mmol/L (3.5-5.1)
[2020-10-07] MEDS: SOLU-MEDROL 40MG VIAL IVP SCH ×2 (05:25→13:19)
[2020-10-07 08:03] VITALS: BP 141/76
[2020-10-07] MEDS: CEFEPIME HCL 1 GM VIAL IVP SCH (09:47)
[2020-10-07] MEDS: FAMOTIDINE 20MG TAB PO SCH (09:47)
[2020-10-07] MEDS: ENOXAPARIN SODIUM 40 MG/0.4 ML SYRINGE SQ SCH (09:48)
[2020-10-07] MEDS: 0.9%NACL 1000ML 1,000 ML IV SCH ×3 (09:48→16:30)
[2020-10-07 11:53] VITALS: BP 126/74
[2020-10-07] MEDS: ALBUTEROL 0.083% 2.5 MG/3 ML INH IH SCH ×2 (14:00→18:00)
[2020-10-07] MEDS ORDERED: LEVO750T46 PO (14:27)
[2020-10-07] MEDS ORDERED: BENZ-17 PO (14:27)
[2020-10-07 17:00] VITALS: BP 135/75
== END 2020-10-07 18:59 | disposition home or self-care (01) | DRG 975 ==
LOC: EDH 05:29 → OBSVTOIN 08:24 → INTOOBSV 08:24 → EDHIP 08:24 → 3AH 10-06 23:08
PROVIDERS: ADMIT Internal Medicine Critical Care Medicine; ATTEND Internal Medicine Critical Care Medicine
DX: A41.9 Sepsis, unspecified organism (principal); N17.9 Acute kidney failure, unspecified; B20 Human immunodeficiency virus [HIV] disease; J18.1 Lobar pneumonia, unspecified organism; E83.42 Hypomagnesemia; E87.6 Hypokalemia; I10 Essential (primary) hypertension; E11.9 Type 2 diabetes mellitus without complications; Z20.828 Contact with and (suspected) exposure to other viral communicable diseases; Z21 Asymptomatic human immunodeficiency virus [HIV] infection status; B19.20 Unspecified viral hepatitis C without hepatic coma; E78.5 Hyperlipidemia, unspecified; Y95 Nosocomial condition; G89.29 Other chronic pain; T50.995A Adverse effect of other drugs, medicaments and biological substances, initial encounter; Y92.89 Other specified places as the place of occurrence of the external cause; Z79.82 Long term (current) use of aspirin; Z83.3 Family history of diabetes mellitus; Z79.899 Other long term (current) drug therapy; Z90.49 Acquired absence of other specified parts of digestive tract
CPT/HCPCS: 36415; 36600; 71045; 71250; 76770; 80048; 80053; 80305; 81001; 82330; 82550; 82728; 82803; 83036; 83605; 83615; 83690; 83735; 83874; 83880; 84100; 84132; 84145; 84443; 84484; 85025; 85027; 85378; 85610; 85730; 86140; 86360; 86900; 86901; 87040; 87088; 87426; 87804; 93005; 93306; 93356; G0378; J0456; J0692; J1650; J2270; J2405; J2543; J2765; J2920; J2930; J3010; J3370; J3490; J7030; J7070; U0003

== ENCOUNTER 2024-01-31 08:11 | Emergency (ER) | payer OTHER ==
[~2024-01-31] VITALS: Ht 180.3 cm; Wt 81.6 kg
[~2024-01-31 08:11] MED LIST changes: +ACET-2079 PO; -ACET1TAB12 PO; -ASPI-1012 PO; +CALC-1271 PO; -CELE200 PO; -CEPH500B PO; +CHOL500051 PO; -DARU1TAB PO; +DARU1TAB3 PO; -EMTR1TAB12 PO; +ERGO500093 PO; -FERR324T10 PO; +FISH1CAP17 PO; -LACT1CAP58 PO; -LISI5TAB21 PO; -OXYC5 PO; -PREG25 PO; +PREN1TAB26 PO; -Polyethylene Glycol 3350 PO; -RITO100T PO; -VANC125C12 PO; +VITA-427 PO
[2024-01-31] MEDS: IBUPROFEN 800 MG TAB PO ONE (10:19)
[2024-01-31] MEDS ORDERED: IBUP-2077 PO (10:19)
[2024-01-31 10:25] VITALS: BP 145/77; PULSE 59; RESP 17; O2SAT 100
== END 2024-01-31 10:41 | disposition home or self-care (01) ==
LOC: EDH 08:11
DX: S80.12XA Contusion of left lower leg, initial encounter (principal); S80.02XA Contusion of left knee, initial encounter; Z90.89 Acquired absence of other organs; Z90.49 Acquired absence of other specified parts of digestive tract; Z79.899 Other long term (current) drug therapy; W01.0XXA Fall on same level from slipping, tripping and stumbling without subsequent striking against object, initial encounter; Y93.89 Activity, other specified; Y92.89 Other specified places as the place of occurrence of the external cause; Y99.8 Other external cause status
CPT/HCPCS: 72170; 73552; 73564

== ENCOUNTER 2024-03-16 17:05 | Emergency (ER) | payer OTHER ==
[~2024-03-16] VITALS: Ht 180.3 cm; Wt 79.4 kg
[~2024-03-16 17:05] MED LIST changes: +IBUP-2077 PO
[2024-03-16 17:14] VITALS: BP 165/98
[2024-03-16] MEDS ORDERED: KETO10TA2 PO (18:59)
[2024-03-16 19:23] VITALS: PULSE 75; RESP 18; O2SAT 99
[2024-03-16] MEDS: KETOROLAC 30MG VIAL (30MG/ML) IM ONE (19:32)
== END 2024-03-16 19:59 | disposition home or self-care (01) ==
LOC: EDH 17:05
DX: S82.042A Displaced comminuted fracture of left patella, initial encounter for closed fracture (principal); S93.401A Sprain of unspecified ligament of right ankle, initial encounter; Z79.899 Other long term (current) drug therapy; Z90.49 Acquired absence of other specified parts of digestive tract; W18.39XA Other fall on same level, initial encounter; Y93.89 Activity, other specified; Y92.89 Other specified places as the place of occurrence of the external cause; Y99.8 Other external cause status
CPT/HCPCS: 99284; 29505; 73610; 73562; 73660; 96372; J1885

== ENCOUNTER 2025-09-07 13:17 | Inpatient (IN) | payer MEDICARE, OTHER ==
[~2025-09-07] VITALS: Ht 180.3 cm; Wt 81.6 kg
--- NOTE | 2025-09-07 13:18 | NUR ---
PATIENT IN ROOM
--- NOTE | 2025-09-07 16:40 | HMCIMG ---
EXAM: CR right foot, 2 View. CLINICAL HISTORY: fall COMPARISON: CR - ANKLE COMP 3VWS LT - 09/07/25 15:22 EST FINDINGS: BONES: Diffuse osteopenia. Minimally displaced fracture of the medial malleolus with adjacent cortical disruption. No additional acute fracture or aggressive appearing osseous lesion. 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 JOINTS: Tibiotalar and subtalar joint spaces show degenerative changes but no rebeca dislocation or gross joint subluxation. SOFT TISSUES: Periarticular soft tissue edema around the ankle, more pronounced medially, with overlying soft tissue contusion. IMPRESSION: * Minimally displaced medial malleolar fracture with associated medial ankle soft tissue contusion and periarticular edema in the setting of diffuse osteopenia. * Background degenerative osteoarthrosis of the tibiotalar and subtalar joints; no prior right foot radiographs available for interval comparison. /[place]
--- NOTE | 2025-09-07 17:11 | HMCIMG ---
EXAM: CR KNEE BILATERAL, 2 VIEWS CLINICAL HISTORY: Fall COMPARISON: None provided TECHNIQUE: Two x-ray views of both knees was performed. FINDINGS: Bones: Right knee: Osteopenic changes. 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 Evidence of multiple screw extraction and multiple bony fragments. Evidence of proximal tibial shaft internal fixation by plate and screws with a gap at the medial aspect of the fracture. No evidence of metallic prosthesis loosening or break Right knee: Osteoarthritic changes. Left knee: Nonunion comminuted fracture of the distal femoral condyle. Evidence of multiple screw extraction and multiple bony fragments. Evidence of proximal tibial shaft internal fixation by plate and screws with a gap at the medial aspect of the fracture. Right knee: Thickening of the suprapatellar and infrapatellar soft tissue shadows. IMPRESSION: 1. 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 Proximal left tibial shaft internal fixation by plate and screws with a gap at the medial aspect of the fracture 3. Right knee osteopenic and osteoarthritic changes 4. Thickening of the right suprapatellar and infrapatellar soft tissues /[place]
--- NOTE | 2025-09-07 17:12 | HMCIMG ---
EXAM: CR LEFT ANKLE, 2 VIEWS CLINICAL HISTORY:fall COMPARISON: None provided TECHNIQUE: 2 views of the left ankle. FINDINGS: Bones: Diffuse decreased bone density denoting osteopenia. Mildly displaced medial malleolar fracture with cortical disruption. Evidence of internal plate fixation is seen at the visualized part of the tibia No sclerotic or destructive changes are observed. Joints: Mild diffuse osteoarthritic changes are seen involving the tibiotalar joint. Soft tissues: Unremarkable. IMPRESSION: 1. Mildly displaced medial malleolar fracture with cortical disruption. 2. Mild diffuse osteoarthritic changes involving the tibiotalar joint. 3. Internal plate fixation at the middle tibia . /[place]
--- NOTE | 2025-09-07 17:18 | HMCIMG ---
EXAM: CR Left Tibia and Fibula, 4 View. CLINICAL HISTORY: Fall. COMPARISON: None provided. FINDINGS: BONES: Comminuted supracondylar distal femoral fracture. Comminuted proximal tibial fracture with internal plate fixation in place, with good alignment of the fracture fragments and no hardware-related complication identified. Transverse fracture of the patella. JOINTS: No rebeca dislocation identified. Findings compatible with gross knee joint hemarthrosis. SOFT TISSUES: Periarticular soft tissue edema and adjacent soft tissue contusion about the knee. IMPRESSION: * Comminuted supracondylar distal femoral fracture with associated gross hemarthrosis and periarticular soft tissue contusion/edema. * Comminuted proximal tibial fracture status post internal plate fixation with satisfactory alignment and no radiographic evidence of hardware complication. * Transverse fracture of the patella. /[place]
[2025-09-07 17:48] LABS: IMMATURE GRANULOCYTE ABSOLUTE 0.03 K/uL (0-1); NUCLEATED RED BLOOD CELLS 0.0 % (0.0-0.19); PLATELET COUNT (AUTO) 210 K/uL (130-400); RED BLOOD CELL COUNT(AUTO) 3.14 MIL/uL (4.50-6.20); RED CELL DISTRIBUTION WIDTH 15.4 % (11.0-15.5); WHITE BLOOD COUNT (AUTO) 9.5 K/uL (4.8-10.8)
[2025-09-07 17:57] LABS: CREATININE 0.7 mg/dL (0.5-1.3); GLOMERULAR FILTR. RATE CALC 103.0 mL/min (>90); GLUCOSE,RANDOM 106.0 mg/dL (70-105); SODIUM SERUM 137.0 mmol/L (136-145); UREA NITROGEN, BLOOD 13.0 mg/dL (7-18)
[2025-09-07 17:59] LABS: INR 1.02 (0.85-1.15)
--- NOTE | 2025-09-07 18:01 | ERN ---
ED Note History of Present Illness Stated Complaint: LEFT KNEE PAIN Chief Complaint: Lower Extremity Pain/Injury Time Seen by MD: 13:26 Time Seen by Midlevel: 13:33 Dictation: 65-year-old male history of and HIV coming in with complaints of left knee pain status post ground level fall yesterday. Patient is complaining of pain to the upper knee, tib-fib and ankle. Denies any head injury, denies any LOC. Patient states he had a previous orthopedic surgeon any done by in April. Allergies: Coded Allergies: No Known Allergies (Unverified Allergy, Unknown, 11/21/15) Home Meds Active Scripts Ketorolac Tromethamine (Ketorolac Tromethamine) 10 Mg Tablet, 10 MG PO BID for 5 Days, #10 TAB Prov:NORTH VALIENTE PAC 03/16/24 Ibuprofen (Ibuprofen 800 mg Tab) 800 Mg Tab, 800 MG PO Q8H PRN for fever or pain, #30 TAB 0 Refills Prov:MARIAH LINN FILM WRITER 01/31/24 Reported Medications Doxycycline Hyclate (Doxycycline Hyclate) 100 Mg Capsule, 1 CAP PO BID for 10 Days, #20 CAP 0 Refills 03/25/25 Calcium Carbonate/Vitamin D3 (Calcium 600 mg-Vit D3 10Mcg Tb) 1 Each Tablet, 1 TAB PO BID 05/30/23 Vitamin B Complex (Vitamin B Complex) 1 Each Tablet, 1 TAB PO DAILY 05/30/23 Vit/Iron Fumarate/FA ( Vitamins Tablet) 1 Each Tablet, 1 TAB PO DAILY 05/30/23 [place]-3 Fatty Acids/Fish Oil (Fish Oil 1,000 mg Softgel) 1 Each Capsule, 1 CAP PO DAILY 05/30/23 Cholecalciferol (Vitamin D3) (Vitamin D3) 125 Mcg Capsule, 1 CAP PO DAILY 05/30/23 Acetaminophen with Codeine (Acetaminophen-Cod #3 Tablet) 1 Each Tablet, 1 TAB PO Q6HPRN PRN for PAIN LEVEL 1 TO 5 05/30/23 Ergocalciferol (Vitamin D2) (Vitamin D2) 1,250 Mcg Capsule, 1 CAP PO QWEEK 05/30/23 Darunavir/Cob/Emtri/Tenof Alaf (Symtuza [id number] mg Tab) 1 Each Tablet, 1 EACH PO AM, TAB 10/06/20 Past Medical History Past Medical History: HIV Additional Past Medical Hx: HIV Surgical History: Other Surgical History Other: LEFT KNEE Social History: Negative Review of System Dictation Constitutional: Negative for fever,chills, and weight loss Eyes: Negative for injury, pain,redness, and discharge ENT: Negative for injury,pain or swelling Cardiovascular: Negative for chest pain, palpitations, and edema Respiratory: Negative for shortness of breath, cough, and wheezing, Abdomen/GI: Negative for abdominal pain, nausea, vomiting, diarrhea, and constipation Back: Negative for injury and pain : Negative for injury, bleeding and discharge MS/Extremity: Negative for injury and deformity, complaining of left leg pain Skin: Negative for rash, and discoloration Neuro: Negative for headache, weakness, numbness, tingling, and seizure Psych: Negative for suicide ideation, homicidal ideation, and hallucinations Review of Systems: was completed Initial Vital Sign VS Vital Signs Date Time Temp Pulse Resp B/P (MAP) Pulse Ox O2 Delivery O2 Flow Rate FiO2 09/07/25 13:20 98.6 73 13 160/89 99 Room Air* 0 21 Physical Exam Dictation General: awake, alert, NAD Head/Face: Normocephalic, atraumatic Eyes: PERRL, EOMI, vision at baseline ENT: oral cavity clear, TMs clear, no signs of infection Neck: Trachea midline, supple, no nuchal rigidity Cardiovascular: RRR, normal S1/S2, No MRGs, no JVD Respiratory: CTAB, no respiratory distress, No rales or wheezes Abdomen: Soft, non-tender, non-distended, normal bowel sounds, no guarding or rebound. Skin: Warm, dry, normal turgor, no rash MS/Extremity: Pulses equal, no cyanosis, neurovascular intact, FROM, pain to palpation above the knee, to the patellar area and to the ankle. Neuro: COAx4, GCS 15, strength 5/5, CN 2-12 intact, normal cerebellar exam, normal gait, Psych: Normal behavior, mood, and affect normal Results (Laboratory/Radiology) Laboratory/Radiology Laboratory Tests Test 09/07/25 17:41 White Blood Count 9.5 K/uL (4.8-10.8) Red Blood Count 3.14 MIL/uL (4.50-6.20) L Hemoglobin 11.2 g/dL (14.0-18.0) L Hematocrit 34.1 % (42-54) L Mean Corpuscular Volume 108.6 fL (79-99) H Mean Corpuscular Hemoglobin 35.7 pg (27.0-33.0) H Mean Corpuscular Hemoglobin Concent 32.8 g/dL (32.0-36.0) Red Cell Distribution Width 15.4 % (11.0-15.5) Platelet Count 210 K/uL (130-400) Mean Platelet Volume 9.1 fL (7.5-10.5) Immature Granulocyte % (Auto) 0.3 % (0-1) Neutrophils (%) (Auto) 71.7 % (40.0-77.0) Lymphocytes (%) (Auto) 19.9 % (21.0-51.0) L Monocytes (%) (Auto) 7.8 % (3.0-13.0) Eosinophils (%) (Auto) 0.1 % (0.0-8.0) Basophils (%) (Auto) 0.2 % (0.0-5.0) Neutrophils # (Auto) 6.8 K/uL (1.8-7.7) Lymphocytes # (Auto) 1.9 K/uL (1.0-4.8) Monocytes # (Auto) 0.7 K/uL (0.1-1.0) Eosinophils # (Auto) 0.01 K/uL (0.00-0.70) Basophils # (Auto) 0.02 K/uL (0.00-0.20) Absolute Immature Granulocyte (auto 0.03 K/uL (0-1) Nucleated Red Blood Cells 0.0 % (0.0-0.19) Prothrombin Time 10.8 SEC (9.6-11.6) Prothromb Time International Ratio 1.02 (0.85-1.15) Activated Partial Thromboplast Time 27.3 SEC (26.3-35.5) Sodium Level 137 mmol/L (136-145) Potassium Level 3.6 mmol/L (3.5-5.1) Chloride Level 102 mmol/L (101-111) Carbon Dioxide Level 24 mmol/L (21-32) Blood Urea Nitrogen 13 mg/dL (7-18) Creatinine 0.7 mg/dL (0.5-1.3) Glomerular Filtration Rate Calc 103 mL/min (>90) Random Glucose 106 mg/dL (70-105) H Total Calcium 8.7 mg/dL (8.5-10.1) Labs Reviewed?: Yes X-RAY Comment: [facility] [address] [place], [place] [id number] IMAGING REPORT Signed PATIENT: GURIVNDER DICK MR#: [id number] : 1960 SEX: M AGE: 65 LOCATION: [facility] ORDER 31 STATUS: REG ER [facility] REPORT#: [id number] SERVICE 29 REASON: fall ORDERING PHYSICIAN: CANDI MALAGON CNP PROCEDURE: TIBFIB LT - TIBIA/FIBULA 2VWS LT EXAM: CR Left Tibia and Fibula, 4 View. CLINICAL HISTORY: Fall. COMPARISON: None provided. FINDINGS: BONES: Comminuted supracondylar distal femoral fracture. Comminuted proximal tibial fracture with internal plate fixation in place, with good alignment of the fracture fragments and no hardware-related complication identified. Transverse fracture of the patella. JOINTS: No rebeca dislocation identified. Findings compatible with gross knee joint hemarthrosis. SOFT TISSUES: Periarticular soft tissue edema and adjacent soft tissue contusion about the knee. IMPRESSION: * Comminuted supracondylar distal femoral fracture with associated gross hemarthrosis and periarticular soft tissue contusion/edema. * Comminuted proximal tibial fracture status post internal plate fixation with satisfactory alignment and no radiographic evidence of hardware complication. * Transverse fracture of the patella. /[place] DICTATED BY: ALFREDO KESSLER MD DATE: 09/07/251817 ELECTRONICALLY SIGNED BY: ALFREDO KESSLER MD DATE: 09/07/251817 [facility] [address] [place], [place] [id number] IMAGING REPORT Signed PATIENT: GURVINDER DICK MR#: [id number] : 1960 SEX: M AGE: 65 LOCATION: ED ORDER 31 STATUS: REG ER REPORT#: [id number] SERVICE 29 REASON: fall ORDERING PHYSICIAN: CANDI MALAGON CNP PROCEDURE: KNEE 3VBIL - KNEE 3 VW BILATERAL EXAM: CR KNEE BILATERAL, 2 VIEWS CLINICAL HISTORY: Fall COMPARISON: None provided TECHNIQUE: Two x-ray views of both knees was performed. FINDINGS: Bones: Right knee: Osteopenic changes. 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 Evidence of multiple screw extraction and multiple bony fragments. Evidence of proximal tibial shaft internal fixation by plate and screws with a gap at the medial aspect of the fracture. No evidence of metallic prosthesis loosening or break Right knee: Osteoarthritic changes. Left knee: Nonunion comminuted fracture of the distal femoral condyle. Evidence of multiple screw extraction and multiple bony fragments. Evidence of proximal tibial shaft internal fixation by plate and screws with a gap at the medial aspect of the fracture. Right knee: Thickening of the suprapatellar and infrapatellar soft tissue shadows. IMPRESSION: 1. 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 Proximal left tibial shaft internal fixation by plate and screws with a gap at the medial aspect of the fracture 3. Right knee osteopenic and osteoarthritic changes 4. Thickening of the right suprapatellar and infrapatellar soft tissues /[place] DICTATED BY: ALFREDO KESSLER MD DATE: 09/07/251810 ELECTRONICALLY SIGNED BY: ALFREDO KESSLER MD DATE: 09/07/251810 [place] [id number] IMAGING REPORT Signed PATIENT: GURVINDER DICK MR#: [id number] : 1960 SEX: M AGE: 65 LOCATION: ED ORDER 31 STATUS: REG ER [facility] REPORT#: [id number] SERVICE 29 REASON: fall ORDERING PHYSICIAN: CANDI MALAGON CNP PROCEDURE: FT 2VW LT - FOOT LIMITED 2VWS LT EXAM: CR right foot, 2 View. CLINICAL HISTORY: fall COMPARISON: CR - ANKLE COMP 3VWS LT - 09/07/25 15:22 EST FINDINGS: BONES: Diffuse osteopenia. Minimally displaced fracture of the medial malleolus with adjacent cortical disruption. No additional acute fracture or aggressive appearing osseous lesion. 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 JOINTS: Tibiotalar and subtalar joint spaces show degenerative changes but no rebeca dislocation or gross joint subluxation. SOFT TISSUES: Periarticular soft tissue edema around the ankle, more pronounced medially, with overlying soft tissue contusion. IMPRESSION: * Minimally displaced medial malleolar fracture with associated medial ankle soft tissue contusion and periarticular edema in the setting of diffuse osteopenia. * Background degenerative osteoarthrosis of the tibiotalar and subtalar joints; no prior right foot radiographs available for interval comparison. /[place] DICTATED BY: ALFREDO KESSLER MD DATE: 09/07/251739 ELECTRONICALLY SIGNED BY: LAFREDO KESSLER MD DATE: 09/07/251739 [place] [address] IMAGING REPORT Signed PATIENT: GURVINDER DICK MR#: [id number] : 1960 SEX: M AGE: 65 LOCATION: [facility] ORDER 31 STATUS: REG ER [facility] REPORT#: [id number] SERVICE 29 REASON: fall ORDERING PHYSICIAN: CANDI MALAGON CNP PROCEDURE: [id number] - ANKLE 2VWS LT EXAM: CR LEFT ANKLE, 2 VIEWS CLINICAL HISTORY:fall COMPARISON: None provided TECHNIQUE: 2 views of the left ankle. FINDINGS: Bones: Diffuse decreased bone density denoting osteopenia. Mildly displaced medial malleolar fracture with cortical disruption. Evidence of internal plate fixation is seen at the visualized part of the tibia No sclerotic or destructive changes are observed. Joints: Mild diffuse osteoarthritic changes are seen involving the tibiotalar joint. Soft tissues: Unremarkable. IMPRESSION: 1. Mildly displaced medial malleolar fracture with cortical disruption. 2. Mild diffuse osteoarthritic changes involving the tibiotalar joint. 3. Internal plate fixation at the middle tibia . /[place] DICTATED BY: ALFREDO KESSLER MD DATE: 09/07/251811 ELECTRONICALLY SIGNED BY: ALFREDO KESSLER MD DATE: 09/07/251811 ED Course ED Course Orders Procedure Category Date Status Time Knee 3 Vw Bilateral RAD 09/07/25 Resulted 13:30 Tibia/Fibula 2vws Lt RAD 09/07/25 Resulted 13:30 Fentanyl Citrate Pf PHA 09/07/25 Complete 0.05 Mg/Ml (Fentanyl 14:12 Ankle 2vws Lt RAD 09/07/25 Resulted 13:30 Foot Limited 2vws Lt RAD 09/07/25 Resulted 13:30 Cbc With Differential LAB 09/07/25 In Process 17:29 Basic Metabolic Panel LAB 09/07/25 Complete 17:29 Pt And Ptt LAB 09/07/25 In Process 17:29 Current Medications Medications (Trade) Dose Ordered Sig/Chantel Route PRN Reason Start Time Stop Time Status Last Admin Dose Admin Fentanyl Citrate (FENTanyl CITRate PF 50 MCG/ 1 ML 2ML VIAL) 50 mcg ONCE STAT IVP 09/07/25 14:12 09/07/25 14:18 DC 09/07/25 14:29 Vital Signs Date Time Temp Pulse Resp B/P (MAP) Pulse Ox O2 Delivery O2 Flow Rate FiO2 09/07/25 16:53 98.4 72 16 165/77 99 Room Air* 0 21 09/07/25 15:41 98.4 65 16 170/76 100 Room Air* 0 21 09/07/25 13:24 98.4 72 16 180/89 99 Room Air 0 09/07/25 13:20 98.6 73 13 160/89 99 Room Air* 0 21 Medical Decision Making MDM MDM:65-year-old male history of and HIV coming in with complaints of left knee pain status post ground level fall yesterday. Patient is complaining of pain to the upper knee, tib-fib and ankle. Denies any head injury, denies any LOC. Patient states he had a previous orthopedic surgeon any done by in April. X-rays show comminuted supracondylar femoral fracture, proximal tibial fracture, trend wrist patella fracture and a medial malleolar fracture. Added blood work for admission. At 6:[address] Lopez was consulted, reviewed images, recommended place pt on knee immobilizer, and okay to consult and admit patient under hospitalist team. Spoke to kash Hansen for admission. Differential diagnosis: Knee fracture, tib-fib fracture, ankle fracture Rationale: Tests considered and ordered secondary to shared decision making include: labs, ECG and radiology Previous outside records reviewed: Old ER visits. Risk of complication and/or morbidity or mortality of patient management: None Medications-Per medication reconciliation Need for hospitalization: Patient does meet criteria for hospitalization. Need for emergency major/minor surgery: No There are no social concerns with this patient. Prescription drug management Prescriptions will include symptomatic care Patient's prior external medical records from other ER visits were reviewed by me as indicated. Prior testing and results from previous visits were reviewed. Prior tests were taken into account with medical decision making and resource utilization, independent historian/historians were used to obtain complete medical history. I independently interpreted the test that were performed, results were reviewed by me and considered findings on radiology if ordered. Medical management and examination interpretation discussions were had by me with other qualified healthcare professionals as indicated for the patient's care. DX & DISP Disposition: Inpatient Decision to Admit Date: Sep 07, 2025 Decision to Admit Time: 18:06 Departure Impression: Primary Impression: Left patella fracture Additional Impressions: Tibia fracture, Patellar fracture, Fractured medial malleolus Condition: Stable Referrals: NORTH GALVAN MD (PCP) I have reviewed the case, and I agree with, Diagnosis and Plan CANDI MALAGON CNP Sep 07, 2025 18:01
[2025-09-07] MEDS: 0.9%NACL 1000ML 1,000 ML IV SCH (18:30)
--- NOTE | 2025-09-07 19:05 | NUR ---
DORSALIS PEDIS WAS ASSESS USING A DOPPLER. LEFT DORSALIS PEDIS WAS ADUIBLE, RIGHT DORSALIS PEDIS WAS FAINT. WORKS MANAGER WAS NOTIFED.
--- NOTE | 2025-09-07 21:16 | HP ---
HISTORY AND PHYSICAL NOTE DATE OF CONSULTATION: 09/07/25 REASON FOR CONSULTATION: fall HISTORY OF PRESENT ILLNESS: 65-year-old male history of and HIV coming in with complaints of left knee pain status post ground level fall yesterday. Patient is complaining of pain to the upper knee, tib-fib and ankle. Denies any head injury, denies any LOC. Patient states he had a previous orthopedic surgeon any done by in April. Allergies: Coded Allergies: No Known Allergies (Unverified Allergy, Unknown, 11/21/15) Home Meds Active Scripts Ketorolac Tromethamine (Ketorolac Tromethamine) 10 Mg Tablet, 10 MG PO BID for 5 Days, #10 TAB Prov:NORTH VALIENTE PAC 03/16/24 Ibuprofen (Ibuprofen 800 mg Tab) 800 Mg Tab, 800 MG PO Q8H PRN for fever or pain, #30 TAB 0 Refills Prov:MARIAH LINN COMIC BOOK DESIGNER 01/31/24 Reported Medications Doxycycline Hyclate (Doxycycline Hyclate) 100 Mg Capsule, 1 CAP PO BID for 10 Days, #20 CAP 0 Refills 03/25/25 Calcium Carbonate/Vitamin D3 (Calcium 600 mg-Vit D3 10Mcg Tb) 1 Each Tablet, 1 TAB PO BID 05/30/23 Vitamin B Complex (Vitamin B Complex) 1 Each Tablet, 1 TAB PO DAILY 05/30/23 Vit/Iron Fumarate/FA ( Vitamins Tablet) 1 Each Tablet, 1 TAB PO DAILY 05/30/23 [place]-3 Fatty Acids/Fish Oil (Fish Oil 1,000 mg Softgel) 1 Each Capsule, 1 CAP PO DAILY 05/30/23 Cholecalciferol (Vitamin D3) (Vitamin D3) 125 Mcg Capsule, 1 CAP PO DAILY 05/30/23 Acetaminophen with Codeine (Acetaminophen-Cod #3 Tablet) 1 Each Tablet, 1 TAB PO Q6HPRN PRN for PAIN LEVEL 1 TO 5 05/30/23 Ergocalciferol (Vitamin D2) (Vitamin D2) 1,250 Mcg Capsule, 1 CAP PO QWEEK 05/30/23 Darunavir/Cob/Emtri/Tenof Alaf (Symtuza [phone] mg Tab) 1 Each Tablet, 1 EACH PO AM, TAB 10/06/20 Past Medical History Past Medical History: HIV Additional Past Medical Hx: HIV Surgical History: Other Surgical History Other: LEFT KNEE Social History: Negative Review of System Dictation Constitutional: Negative for fever,chills, and weight loss Eyes: Negative for injury, pain,redness, and discharge ENT: Negative for injury,pain or swelling Cardiovascular: Negative for chest pain, palpitations, and edema Respiratory: Negative for shortness of breath, cough, and wheezing, Abdomen/GI: Negative for abdominal pain, nausea, vomiting, diarrhea, and constipation Back: Negative for injury and pain : Negative for injury, bleeding and discharge MS/Extremity: Negative for injury and deformity, complaining of left leg pain Skin: Negative for rash, and discoloration Neuro: Negative for headache, weakness, numbness, tingling, and seizure Psych: Negative for suicide ideation, homicidal ideation, and hallucinations Review of Systems: was completed ALLERGIES: Coded Allergies: No Known Allergies (Unverified Allergy, Unknown, 11/21/15) HOME MEDS: Active Scripts Ketorolac Tromethamine (Ketorolac Tromethamine) 10 Mg Tablet, 10 MG PO BID for 5 Days, #10 TAB Prov:NORTH VALIENTE PAC 03/16/24 Ibuprofen (Ibuprofen 800 mg Tab) 800 Mg Tab, 800 MG PO Q8H PRN for fever or pain, #30 TAB 0 Refills Prov:MARIAH LINN COMIC BOOK DESIGNER 01/31/24 Reported Medications Doxycycline Hyclate (Doxycycline Hyclate) 100 Mg Capsule, 1 CAP PO BID for 10 Days, #20 CAP 0 Refills 03/25/25 Calcium Carbonate/Vitamin D3 (Calcium 600 mg-Vit D3 10Mcg Tb) 1 Each Tablet, 1 TAB PO BID 05/30/23 Vitamin B Complex (Vitamin B Complex) 1 Each Tablet, 1 TAB PO DAILY 05/30/23 Vit/Iron Fumarate/FA ( Vitamins Tablet) 1 Each Tablet, 1 TAB PO DAILY 05/30/23 [place]-3 Fatty Acids/Fish Oil (Fish Oil 1,000 mg Softgel) 1 Each Capsule, 1 CAP PO DAILY 05/30/23 Cholecalciferol (Vitamin D3) (Vitamin D3) 125 Mcg Capsule, 1 CAP PO DAILY 05/30/23 Acetaminophen with Codeine (Acetaminophen-Cod #3 Tablet) 1 Each Tablet, 1 TAB PO Q6HPRN PRN for PAIN LEVEL 1 TO 5 05/30/23 Ergocalciferol (Vitamin D2) (Vitamin D2) 1,250 Mcg Capsule, 1 CAP PO QWEEK 05/30/23 Darunavir/Cob/Emtri/Tenof Alaf (Symtuza [phone] mg Tab) 1 Each Tablet, 1 EACH PO AM, TAB 10/06/20 INPATIENT MEDS: Current Medications Medications Dose Ordered Sig/Chantel Start Time Stop Time Status Last Admin Sodium Chloride 1,000 ml @ 100 mls/hr Q10H 09/07/25 18:00 10/07/25 17:59 09/07/25 18:30 Ceftriaxone Sodium 1 gm Q24H 09/07/25 18:00 09/09/25 17:59 09/07/25 18:32 Enoxaparin Sodium 40 mg DAILY 09/08/25 09:00 10/08/25 08:59 Hydromorphone HCl 0.5 mg Q3H3 PRN 09/07/25 18:00 09/12/25 17:59 09/07/25 18:30 VITAL SIGNS Vital Signs Date Time Temp Pulse Resp B/P (MAP) Pulse Ox O2 Delivery O2 Flow Rate FiO2 09/07/25 19:47 98.4 72 16 145/66 100 Room Air* 0 21 09/07/25 16:53 98.4 72 16 165/77 99 Room Air* 0 21 09/07/25 15:41 98.4 65 16 170/76 100 Room Air* 0 21 09/07/25 13:24 98.4 72 16 180/89 99 Room Air 0 09/07/25 13:20 98.6 73 13 160/89 99 Room Air* 0 21 PHYSICAL EXAM General: awake, alert, NAD Head/Face: Normocephalic, atraumatic Eyes: PERRL, EOMI, vision at baseline ENT: oral cavity clear, TMs clear, no signs of infection Neck: Trachea midline, supple, no nuchal rigidity Cardiovascular: RRR, normal S1/S2, No MRGs, no JVD Respiratory: CTAB, no respiratory distress, No rales or wheezes Abdomen: Soft, non-tender, non-distended, normal bowel sounds, no guarding or rebound. Skin: Warm, dry, normal turgor, no rash MS/Extremity: Pulses equal, no cyanosis, neurovascular intact, FROM, pain to palpation above the knee, to the patellar area and to the ankle. Neuro: COAx4, GCS 15, strength 5/5, CN 2-12 intact, normal cerebellar exam, normal gait, Psych: Normal behavior, mood, and affect normal LABORATORY RESULTS Laboratory Tests 09/07/25 17:41: White Blood Count 9.5, Red Blood Count 3.14, Hemoglobin 11.2, Hematocrit 34.1, Mean Corpuscular Volume 108.6, Mean Corpuscular Hemoglobin 35.7, Mean Corpuscular Hemoglobin Concent 32.8, Red Cell Distribution Width 15.4, Platelet Count 210, Mean Platelet Volume 9.1, Immature Granulocyte % (Auto) 0.3, Neutrophils (%) (Auto) 71.7, Lymphocytes (%) (Auto) 19.9, Monocytes (%) (Auto) 7.8, Eosinophils (%) (Auto) 0.1, Basophils (%) (Auto) 0.2, Neutrophils # (Auto) 6.8, Lymphocytes # (Auto) 1.9, Monocytes # (Auto) 0.7, Eosinophils # (Auto) 0.01, Basophils # (Auto) 0.02, Absolute Immature Granulocyte (auto 0.03, Nucleated Red Blood Cells 0.0, Red Blood Cell Morphology See comments, Prothrombin Time 10.8, Prothromb Time International Ratio 1.02, Activated Partial Thromboplast Time 27.3, Sodium Level 137, Potassium Level 3.6, Chloride Level 102, Carbon Dioxide Level 24, Blood Urea Nitrogen 13, Creatinine 0.7, Glom erular Filtration Rate Calc 103, Random Glucose 106, Total Calcium 8.7 PROBLEM LIST: (1) Contusion of left knee, initial encounter ICD Codes: S80.02XA - Contusion of left knee, initial encounter (2) Contusion of left leg ICD Codes: S80.12XA - Contusion of left lower leg, initial encounter (3) Fall ICD Codes: W19.XXXA - Unspecified fall, initial encounter (4) Right ankle sprain ICD Codes: S93.401A - Sprain of unspecified ligament of right ankle, initial encounter (5) Patellar fracture ICD Codes: S82.009A - Unspecified fracture of unspecified patella, initial encounter for closed fracture (6) Fractured medial malleolus ICD Codes: S82.53XA - Displaced fracture of medial malleolus of unspecified tibia, initial encounter for closed fracture (7) Tibia fracture ICD Codes: S82.209A - Unspecified fracture of shaft of unspecified tibia, initial encounter for closed fracture (8) Left patella fracture ICD Codes: S82.002A - Unspecified fracture of left patella, initial encounter for closed fracture PLAN pain mx, resume home meds, consult ortho SEA BOWERS MD Sep 07, 2025 21:16
--- NOTE | 2025-09-07 21:24 | HMCIMG ---
EXAM: CR Left Ankle, 3 views CLINICAL HISTORY: Fracture. COMPARISON: Same day radiograph of the left ankle. FINDINGS: Mildly acute fracture in the medial malleolus. Mildly displaced acute fracture around the distal fibular metaphysis with mild posterior lateral tilt of the distal segment. There is mild posterior lateral subluxation of the talar dome in relation to the tibial plafond. Diffuse soft tissue swelling is evident. Mild osteopenia. Mild to moderate osteoarthritis. Tiny plantar and posterior calcaneal enthesophyte. Atherosclerotic vascular calcifications. IMPRESSION: Mildly acute fracture in the medial malleolus. Mildly displaced acute fracture around the distal fibular metaphysis with mild posterior lateral tilt of the distal segment. There is mild posterior lateral subluxation of the talar dome in relation to the tibial plafond. Compared to the prior study, there is no significant interval change. /[place]
--- NOTE | 2025-09-07 21:30 | HMCIMG ---
EXAM: CR Left Femur, 4 views. CLINICAL HISTORY: Fracture. COMPARISON: None provided. FINDINGS: Acute subcapital femoral neck fracture with mild proximal migration of the distal segment and neck shortening. Comminuted displaced acute fractures in the distal metadiaphysis of the femur with mild posterior lateral tilt of the distal segment. Age-indeterminate fracture around the distal third of the patella. Partially visualized comminuted fracture around the proximal tibial metaphysis with fixating hardware in place.. Diffuse soft tissue swelling is evident. Osteopenia. Mild degenerative changes around the included knee and ankle joints. IMPRESSION: Acute subcapital femoral neck fracture with mild proximal migration of the distal segment and neck shortening. Comminuted displaced acute fractures in the distal metadiaphysis of the femur with mild posterior lateral tilt of the distal segment. Age-indeterminate fracture around the distal third of the patella. Partially visualized comminuted fracture around the proximal tibial metaphysis with fixating hardware in place. /[place]
--- NOTE | 2025-09-07 22:03 | NUR ---
RECIEVED PT FROM [facility] RN DAYSHIFT WITHOUT ANY ANKLE SPLINT PLACED ANKLE STIRRUP OREDERED
--- NOTE | 2025-09-07 22:04 | NUR ---
NIL HOME MEDS AVAIL AT BEDSIDE
--- NOTE | 2025-09-07 23:30 | NUR ---
ADMISSION NOTE PATIENT ADMITTED WITH LEFT ANKLE SPLINT AND LEFT KNEE IMMOBILIZER INTACT TO LEFT LEG. CAPILLARY REFILL OF LEFT FOOT INTACT, < 3 SEC. PATIENT ALERT, ORIENTED, AND ABLE TO MAKE NEEDS KNOWN. CALL LIGHT IN REACH, TAUGHT TO USE.
[2025-09-07 23:40] VITALS: O2SAT 100
[2025-09-08] VITALS (9 sets, daily range): BP systolic 143–167; BP diastolic 72–100; PULSE 71–104; RESP 18–20; TEMP 98.4–99.7; O2SAT 99
[2025-09-08 06:33] LABS: IMMATURE GRANULOCYTE ABSOLUTE 0.02 K/uL (0-1); NUCLEATED RED BLOOD CELLS 0.0 % (0.0-0.19); PLATELET COUNT (AUTO) 207 K/uL (130-400); RED BLOOD CELL COUNT(AUTO) 2.91 MIL/uL (4.50-6.20); RED CELL DISTRIBUTION WIDTH 15.3 % (11.0-15.5); WHITE BLOOD COUNT (AUTO) 8.9 K/uL (4.8-10.8)
[2025-09-08 06:43] LABS: CREATININE 0.5 mg/dL (0.5-1.3); GLOMERULAR FILTR. RATE CALC 114.0 mL/min (>90); GLUCOSE,RANDOM 99.0 mg/dL (70-105); SODIUM SERUM 141.0 mmol/L (136-145); UREA NITROGEN, BLOOD 12.0 mg/dL (7-18)
[2025-09-08] MEDS: ENOXAPARIN SODIUM 40 MG/0.4 ML SYRINGE SQ SCH (07:41)
--- NOTE | 2025-09-08 11:02 | NUR ---
DCP:HOME Pt currently lives at home with his Jarek Landa. Pt has a walker and wheelchair at home. Pt has a provider that goes to his home 3 hrs a day to assist with home management and meals. PCP is Dr. Camacho Ramirez and uses [facility] for any RX needs. At [place] pt will want to go home however would need transportation assistance.
[2025-09-08 11:24] LABS: CREATINE KINASE, TOTAL 59.0 U/L (21-232)
[2025-09-08] MEDS ORDERED: PoTASSium chl 10% ELIXIR 20MEQ 20 MEQ/15 ML UDCUP PO PRN (15:00)
--- NOTE | 2025-09-08 16:00 | NUR ---
DISCHARGE PLANNING SPOKE TO PATIENT EARLIER IN THE DAY RE REHAB. ADAMANT THAT HE WANTS TO GO HOME . ADVISED HIM OF THE FREQUENCY LIMITATIONS OF HOME HEALTH INSSITS THAT HE NEEDS TO BE HOME LATER SAW ORDER FROM DR. HARRY RE WHEELCHAIR W LEG EXTENSION. SW NOTES SAYS PT HAS WHEELCHAIR- CALL TO PARTNER FOR [employer]. HE STATED THE WHEELCAHIR WAS LENT TO PT, NOT REC'D THROUGH INSURANCE. REC'D VERBAL VALERIA FOR [facility] CLINICAL INFO WILL EXPECT HOME HEALTH TO BE NEEDED WELL.
[2025-09-08] MEDS: PoTASSium chloRIDE 20MEQ ER 20 MEQ ERTAB PO PRN (17:59)
--- NOTE | 2025-09-08 18:52 | CONS ---
CONSULTATION NOTE/H&P Date of Service: Sep 08, 2025 -late entry seen around noon Reason for Consultation: left leg fractures Requesting Physician: ER HISTORY OF PRESENT ILLNESS: 65 yo HIV+ M with h/o osteoporosis and frequent falls/fractures related to weakness and muscle wasting from early retrovirals. He reports that he fell at 3AM when going to the bathroom on Sunday night sustaining injuries to the left leg with pain around the ankle and knee. Reports he had ORIF tibial plateau in March 2025. REVIEW OF SYSTEMS CONSTITUTIONAL: Denies fever, chills, or fatigue. HEAD/FACE: No signs of trauma. EENT: Denies eye pain, blurred vision, double vision, or light sensitivity. RESPIRATORY: Denies shortness of breath, cough, wheezing CARDIOVASCULAR: Denies chest pain, palpitation, syncope GASTROINTESTINAL/ABDOMINAL: Denies abdominal pain, constipation, diarrhea, nausea or vomiting GENITOURINARY: Denies dysuria or hematuria. MUSCULOSKELETAL: Reports joint pain, tenderness, trauma. INTEGUMENTARY: Denies rash or itchiness NEUROLOGICAL/PSYCH: Denies anxiety, depression, heat or cold intolerance. PAST MEDICAL HISTORY: HIV+ Osteoporosis PAST SURGICAL HISTORY: left femoral neck fracture ORIF left femoral neck fracture Hardware removal right hip replacement ex-fix left knee ORIF left tibial plateau cholecystectomy appendectomy PAST SOCIAL HISTORY: lives with spouse denies EtOH or tobacco reports rare MJ ambulates with walker at baseline FAMILY HISTORY: NC Coded Allergies: No Known Allergies (Unverified Allergy, Unknown, 11/21/15) PHYSICAL EXAM EYES: Anicteric. Pupils equal HENT: moist Oral mucosa NECK: Supple LUNGS: nonlabored breathing CARDIOVASCULAR: regular rate ABDOMEN: Nondistended CENTRAL NERVOUS SYSTEM: Awake, alert, oriented x 3. No focal deficits. SKIN: No rashes, no swelling. LYMPHATICS: No peripheral lymphadenopathy MUSCULOSKELETAL: left leg with posterior U splint at ankle and knee immobilizer on the leg, tender in both of these regions with edema. Patella nontender. +wiggles toes. BCR EXTREMITIES: No cyanosis or clubbing Vital Sign (Last 24 Hours) 09/08/25 09/08/25 07:30 15:53 Temp 98.4 Pulse 83 Resp 18 B/P (MAP) 166/87 Pulse Ox 100 O2 Delivery Room Air O2 Flow Rate 0 FiO2 21 Intake & Output (last 24hrs) 09/07/25 09/07/25 09/08/25 15:00 23:00 07:00 Output Total 200 ml Balance -200 ml LABS: Laboratory: Test 09/08/25 06:14 09/07/25 17:41 Range/Units White Blood Count 8.9 4.8-10.8 K/uL Red Blood Count 2.91 L 4.50-6.20 MIL/uL Hemoglobin 10.4 L 14.0-18.0 g/dL Hematocrit 31.0 L 42-54 % Mean Corpuscular Volume 106.5 H 79-99 fL Mean Corpuscular Hemoglobin 35.7 H 27.0-33.0 pg Mean Corpuscular Hemoglobin Concent 33.5 32.0-36.0 g/dL Red Cell Distribution Width 15.3 11.0-15.5 % Platelet Count 207 130-400 K/uL Mean Platelet Volume 9.9 7.5-10.5 fL Immature Granulocyte % (Auto) 0.2 0-1 % Neutrophils (%) (Auto) 53.9 40.0-77.0 % Lymphocytes (%) (Auto) 33.4 21.0-51.0 % Monocytes (%) (Auto) 11.2 3.0-13.0 % Eosinophils (%) (Auto) 1.0 0.0-8.0 % Basophils (%) (Auto) 0.3 0.0-5.0 % Neutrophils # (Auto) 4.8 1.8-7.7 K/uL Lymphocytes # (Auto) 3.0 1.0-4.8 K/uL Monocytes # (Auto) 1.0 0.1-1.0 K/uL Eosinophils # (Auto) 0.09 0.00-0.70 K/uL Basophils # (Auto) 0.03 0.00-0.20 K/uL Absolute Immature Granulocyte (auto 0.02 0-1 K/uL Nucleated Red Blood Cells 0.0 0.0-0.19 % Sodium Level 141 136-145 mmol/L Potassium Level 3.7 3.5-5.1 mmol/L Chloride Level 108 101-111 mmol/L Carbon Dioxide Level 22 21-32 mmol/L Blood Urea Nitrogen 12 7-18 mg/dL Creatinine 0.5 0.5-1.3 mg/dL Glomerular Filtration Rate Calc 114 >90 mL/min Random Glucose 99 70-105 mg/dL Total Calcium 8.5 8.5-10.1 mg/dL Magnesium Level 1.90 1.80-2.40 mg/dL Total Creatine Kinase 59 # 21-232 U/L Red Blood Cell Morphology See comments Prothrombin Time 10.8 9.6-11.6 SEC Prothromb Time International Ratio 1.02 0.85-1.15 Activated Partial Thromboplast Time 27.3 26.3-35.5 SEC DIAGNOSTICS / RADIOLOGY: 3v left ankle with displaced bimalleolar ankle fracture 2v left femur with acute distal femoral metadiaphyseal fracture with comminution. Prior pin site tracts are visible. Evidence of prior patellar fracture malunion with questionable acute fracture line. Deformity of the femoral head/neck junction that appears subacute/chronic. Patellar and femoral neck deformities are visible on prior studies from March of this year. ASSESSMENT: acute left ankle fracture acute left distal femur fracture PLAN: NPO p MN Discussed with patient and his spouse ORIF with plates and screws in both locations. We discussed NWB 3m postop and need of wheelchair with a leg lift. I explained range of motion of the knee would be slowly titrated back in while NWB. We will obtain consent Type and cross with 2U on hold I have notified CM of his post op equipment needs to OR Sunday ISIDRA HARRY MD Sep 08, 2025 18:52
[2025-09-09] VITALS (26 sets, daily range): BP systolic 127–165; BP diastolic 67–83; PULSE 77–106; RESP 16–22; TEMP 97.6–98.5; O2SAT 99
--- NOTE | 2025-09-09 07:22 | PN ---
SUBJECTIVE: The patient was admitted for assessment and treatment of left patella posttraumatic fracture closed. Displaced fracture of the medial malleolus of tibia. Fracture of the shaft of the left tibia, closed. Right ankle sprain. Consultation with Orthopedics has been made. The patient is scheduled for surgery tomorrow. Otherwise, he is currently awake, alert, oriented in person, time and place, not in distress. OBJECTIVE: VITAL SIGNS: In the chart. HEENT: Normocephalic, atraumatic. LUNGS: Clear to auscultation. HEART: S1, S2 are distant. ABDOMEN: Soft and nontender. ASSESSMENT AND PLAN: * Status post fall, accidental. * Left patella fracture, left tibial malleolus fracture, displaced, closed. * Left tibia shaft fracture closed. * Continue recommendations by Orthopedics. * HIV positive. Continue with current medications. * Continue with analgesics. * Follow up in a.m. with results. DOS: 09/08/2025 TID: [id number] RECEIPT: [id number] MTDD
[2025-09-09] MEDS ORDERED: LIDOCAINE PF 100MG/5ML (2%) SYRINGE 5ML ONE (16:06)
[2025-09-09] MEDS ORDERED: MIDAZOLAM HCL 1 MG/ML 2ML VIAL ONE ×2 (16:06→20:21)
--- NOTE | 2025-09-09 16:45 | NUR ---
RECEIVED HANDOFF REPORT FROM INES PRADHAN.
--- NOTE | 2025-09-09 18:09 | NUR ---
PENDING TO SEND SURGICAL NOTE TO [facility] FOR WALKER WITH LEG EXTENSION. NO SURGICAL NOTE IN CHART. WILL DEFER TO AM,
[2025-09-09] MEDS ORDERED: CALCIUM CARB 500MG PO PRN (20:00)
[2025-09-09] MEDS ORDERED: PoTASSium chl 10% ELIXIR 20MEQ 20 MEQ/15 ML UDCUP PO PRN (20:00)
[2025-09-09] MEDS ORDERED: PROMETHAZINE HCL 25 MG/ML 1ML AMPULE IM PRN (20:30)
--- NOTE | 2025-09-09 20:46 | OP ---
Operative Note: DATE OF PROCEDURE: 09/09/25 SURGEON: ISIDRA HARRY MD MEDICAL CLAIMS MANAGER: SHANIQUA Austin ANESTHESIA: General with femoral and popliteal blocks ANESTHESIOLOGIST/SOCK MENDER: Eleuterio Branch CRNA PREOPERATIVE DIAGNOSIS: Left distal femur and left trimalleolar ankle fractures POSTOPERATIVE DIAGNOSIS: Left distal femur and left trimalleolar ankle fractures PROCEDURE: Open reduction internal fixation left distal femur fracture, open reduction internal fixation left trimalleolar ankle fracture ESTIMATED BLOOD LOSS: 200 cc INDICATIONS: 65-year-old HIV-positive male status post ground level fall with a injuries to the left knee and ankle. He was seen in the emergency room and admitted for definitive management of this. After discussion of the risks, benefits, and alternatives, the patient voluntarily agreed to undergo the aforementioned procedures. DESCRIPTION OF PROCEDURE: Patient was properly identified in the preoperative holding area. Surgical site marking was verified and surgery consent reviewed. The patient was then taken to the operating room and placed in supine position on the OR table. After induction of general anesthesia, preoperative antibiotics were given, all bony prominences were well-padded, and a well padded tourniquet was applied but not inflated at this time. The left lower extremity was then prepped and draped in usual sterile fashion. Surgical timeout was done verifying correct surgery, side, site, and location to be performed. We then began the procedure by exsanguinating the limb using Esmarch and inflating the tourniquet to 350 mmHg. We then used a 15 blade to make approximately 10 cm long incision directly over the lateral malleolus centered over the fracture site. We came sharply through the skin dissected carefully through the subcutaneous tissue and identified the subcutaneous border of the fibula. We cut down sharply onto the fibula using a 15 blade. We then used our periosteal elevator to elevate soft tissue off of the bone both in the proximal and distal direction as well as anterior and posterior direction. We identified the fracture site. The fracture site was then distracted and interposed soft tissue and hematoma was debrided using a curette. We then attempted to achieve our fracture reduction using a lion-jaw clamp with the bone was very poor quality and crushed under the clamp. We then attempted to further clean any interposed tissue and used a external forces to attempt to achieve a reduction. Since we were unable to hold this with the knee warm up clamp we then pinned a Aguirre and Nephew five hole distal fibular locking plate in place across the fracture site while holding the ankle reduced in a mortise view under fluoroscopy. This was then visualized under AP and mortise fluoroscopic views and found to be appropriately reduced with fibula out to length. We then began to drill and fill to screw holes above and below the fracture site with 3.5 locking screws. This was done in standard fashion. At this point we focused our attention on the medial malleolus where we made an approximately 5 cm long incision. We were met with significant bleeding and deflated the tourniquet secondary to a venous tourniquet. We then dissected carefully through the subcutaneous tissue. We then identified our fracture site and cleaned surrounding periosteum and other soft tissue as well as hematoma from within the fracture site. Reduction was obtained using a dental pick and held using a [id number] reduction clamp this was then verified to be reduced under AP and mortise fluoroscopic views. We then placed our 2 guidepins for cancellus screws and verified these to be appropriate position under AP lateral and mortise fluoroscopic views. We then drilled and filled over the screws in standard fashion. Once we had this hardware in place we then removed the guidewires and the reduction clamp. We then obtained our final AP mortise and lateral fluoroscopic views. These were saved to the PACS system and they were interpreted by me. We then thoroughly irrigated out the wound with normal saline and began to repair the subcutaneous tissue using a 2-0 Vicryl. Running 3-0 nylon was used to close the skin. We then focused our attention on the distal femur. We reamed plated the tourniquet 350 mmHg. We made an approximately 15 cm long Lateral incision starting at the knee and extending proximally. Hemostasis was achieved using Bovie electrocautery. We then came sharply through subcutaneous tissue tensor fascia clarisa and incised the IT band in line with the skin incision. We then used a Agrawal elevator to elevate the vastus lateralis and soft tissue off of the distal femur. At this point we are able to visualize our fracture site. We then selected our plate and inserted this in a submuscular fashion. We used the nine hole Aguirre and Nephew left distal femur locking plate. This was visualized under fluoroscopy to be in the appropriate position. We then placed pins in the proximal and distal end of the plate, ensuring reduction was maintained under fluoroscopy. We then checked the placement of our plate and AP and lateral fluoroscopic views. Since we were happy with our plate placement, we then began to drill and fill the screws through the locking holes. We then placed 4.5 locking screws in the distal cluster and proximally in the shaft. We then removed the temporary fixation pins and filled these holes with 4.5 locking screws as well. We then tightened all of our screws. The aiming arm was then removed from the plate in the last 4.5 locking screw was placed. We obtained our final AP and lateral fluoroscopic views, these were saved to the PACS system, and they were interpreted by me. We then thoroughly irrigated out the wound with normal saline. We repaired the IT band using #1 Vicryl in a running fashion. The subcutaneous tissue was then closed using 2-0 Vicryl. 3-0 Monocryl was used in a running fashion to close the skin with Dermabond applied over this. 3-0 nylon was used to close the stab incisions. Sterile dressing with a posterior splint was then applied to the ankle. Sterile dressing and knee immobilizer were applied to the left knee. Tourniquet was then deflated. Patient was awakened from anesthesia and taken to the recovery room in stable condition. ISIDRA HARRY MD Sep 09, 2025 20:46
[2025-09-09] MEDS: 0.9%NACL 1000ML 1,000 ML IV SCH (23:09)
[2025-09-10] VITALS (9 sets, daily range): BP systolic 114–156; BP diastolic 66–99; PULSE 87–117; RESP 16–20; TEMP 98.1–102.4; O2SAT 99–100
[2025-09-10 05:11] LABS: NUCLEATED RED BLOOD CELLS 0.0 % (0.0-0.19); PLATELET COUNT (AUTO) 206.0 K/uL (130-400); RED BLOOD CELL COUNT(AUTO) 2.39 MIL/uL (4.50-6.20); RED CELL DISTRIBUTION WIDTH 14.6 % (11.0-15.5); WHITE BLOOD COUNT (AUTO) 7.1 K/uL (4.8-10.8)
[2025-09-10 05:25] LABS: INR 1.01 (0.85-1.15)
[2025-09-10 05:26] LABS: CREATININE 0.6 mg/dL (0.5-1.3); GLOMERULAR FILTR. RATE CALC 108.0 mL/min (>90); GLUCOSE,RANDOM 99.0 mg/dL (70-105); SODIUM SERUM 138.0 mmol/L (136-145); UREA NITROGEN, BLOOD 7.0 mg/dL (7-18)
[2025-09-10] MEDS: PoTASSium chloRIDE 20MEQ ER 20 MEQ ERTAB PO PRN (06:14)
--- NOTE | 2025-09-10 07:56 | PN ---
SUBJECTIVE: The patient is examined at bedside. No fever or chills. No chest pain. No nausea, vomiting. The patient is scheduled to have surgery today. OBJECTIVE: GENERAL: Currently awake, alert, oriented in person, time and place, not in distress. VITAL SIGNS: In the chart. HEENT: Normocephalic, atraumatic. LUNGS: Clear to auscultation. HEART: S1, S2 are distant. ABDOMEN: Soft and nontender. EXTREMITIES: Left leg and foot covered with surgical gauzes. ASSESSMENT AND PLAN: Status post fall with traumatic fracture of left patella as well as acute left ankle fracture and acute left distal femur fracture. The patient will be having surgery with Dr. Lopez. Continue with deep venous thrombosis prophylaxis, gastrointestinal prophylaxis, and pulmonary prophylaxis. Follow up in a.m. with results. DOS: 09/09/2025 TID: [id number] RECEIPT: [id number] [email or web address]
--- NOTE | 2025-09-10 08:21 | PN ---
Ortho postop day one. This morning the patient is awake alert and oriented. He is resting in bed. No acute distress. Reporting moderate pain. Vital signs have remained stable he did have temperature of 102.4 but this morning has normalized. I have reinforced incentive spirometry with adequate returned demonstration. Voiding on his own. Laboratory results reviewed did have a drop in hemoglobin and hematocrit. Currently is asymptomatic we will continue to observe and treat per protocol. Potassium at 3.2 we will cover per protocol. Operative findings discussed with the patient. Dressing is intact. Knee immobilizer present and posterior splint ankle adequate normal sensation to toes, normal capillary refill. can wiggle toes on command. Patient understands he is to be nonweightbearing to extremity for the next three months. Physical therapy to assist and teach for mobility and transfers. Patient is anticipating going home with a home health we will need additional DME. Assessment: Status post open reduction internal fixation left distal femur fracture and open reduction internal fixation of left trimalleolar ankle fracture Acute postoperative blood loss anemia. Hypokalemia Plan: Continue with Dr. Lopez protocol and discharge planning. Acute postoperative blood loss anemia addressed with the protocol. Hypokalemia addressed with the protocol Continue with admitting physician plan of care. Vitals/Labs Vital Signs Date Time Temp Pulse Resp B/P (MAP) Pulse Ox O2 Delivery O2 Flow Rate FiO2 09/10/25 03:33 102.4 117 20 122/90 99 Nasal Cannula 3.0 09/09/25 21:33 21 Laboratory Tests 09/10/25 05:02 Medications Current Medications Fentanyl Citrate 50 mcg ONCE STAT IVP Last administered on 09/07/25at 14:29; Start 09/07/25 at 14:12; Stop 09/07/25 at 14:18; Status DC Sodium Chloride 1,000 ml @ 100 mls/hr Q10H IV Last administered on 09/08/25at 20:31; Start 09/07/25 at 18:00; Stop 09/09/25 at 20:27; Status DC Ceftriaxone Sodium 1 gm Q24H IVPB Last administered on 09/08/25at 17:59; Start 09/07/25 at 18:00; Stop 09/09/25 at 17:59; Status DC Enoxaparin Sodium 40 mg DAILY SQ Last administered on 09/08/25at 07:41; Start 09/08/25 at 09:00; Stop 10/08/25 at 08:59 Hydromorphone HCl 0.5 mg Q3H3 PRN IVP Last administered on 09/07/25at 21:47; Start 09/07/25 at 18:00; Stop 09/08/25 at 01:36; Status DC Hydromorphone HCl 1 mg STK-MED ONCE .ROUTE; Start 09/07/25 at 21:42; Stop 09/07/25 at 21:42; Status DC Home Med AM PO Last administered on 09/08/25at 10:22; Start 09/08/25 at 09:00; Stop 10/08/25 at 08:59 Hydromorphone HCl 0.5 mg Q3H PRN IVP Last administered on 09/10/25at 05:16; Start 09/08/25 at 02:00; Stop 09/13/25 at 01:29 Potassium Chloride 100 ml @ 100 mls/hr AD PRN IV; Start 09/08/25 at 15:00; Stop 09/09/25 at 20:02; Status DC Potassium Chloride 20 meq AD PRN PO; Start 09/08/25 at 15:00; Stop 09/09/25 at 20:02; Status DC Potassium Chloride 20 meq AD PRN PO Last administered on 09/08/25at 22:45; Start 09/08/25 at 15:00; Stop 09/09/25 at 20:02; Status DC Hydromorphone HCl 1 mg STK-MED ONCE .ROUTE; Start 09/09/25 at 15:30; Stop 09/09/25 at 15:30; Status DC Hydromorphone HCl 0.5 mg STK-MED ONCE IVP Last administered on 09/09/25at 15:35; Start 09/09/25 at 15:35; Stop 09/09/25 at 15:40; Status DC Lidocaine HCl 100 mg STK-MED ONCE .ROUTE; Start 09/09/25 at 16:06; Stop 09/09/25 at 16:06; Status DC Midazolam HCl 2 mg STK-MED ONCE .ROUTE; Start 09/09/25 at 16:06; Stop 09/09/25 at 16:06; Status DC Propofol 200 mg STK-MED ONCE IV; Start 09/09/25 at 16:06; Stop 09/09/25 at 16:06; Status DC Rocuronium Candor 50 mg STK-MED ONCE .ROUTE; Start 09/09/25 at 16:06; Stop 09/09/25 at 16:07; Status DC Fentanyl Citrate 100 mcg STK-MED ONCE .ROUTE; Start 09/09/25 at 16:06; Stop 09/09/25 at 16:07; Status DC Ketamine HCl 50 mg STK-MED ONCE .ROUTE; Start 09/09/25 at 17:02; Stop 09/09/25 at 17:02; Status DC Rocuronium Candor 50 mg STK-MED ONCE .ROUTE; Start 09/09/25 at 17:19; Stop 09/09/25 at 17:19; Status DC Fentanyl Citrate 100 mcg STK-MED ONCE .ROUTE; Start 09/09/25 at 18:36; Stop 09/09/25 at 18:37; Status DC Sodium Chloride 1,000 ml @ 100 mls/hr Q10H IV Last administered on 09/09/25at 23:09; Start 09/09/25 at 20:00; Stop 09/10/25 at 19:59 Polyethylene Glycol 17 gm DAILY PO; Start 09/10/25 at 09:00; Stop 10/10/25 at 08:59 Psyllium Hydrophilic Mucilloid 1 tbs DAILYLUNCH PO; Start 09/10/25 at 12:00; Stop 10/10/25 at 11:59 Bisacodyl 10 mg DAILY PRN PO; Start 09/11/25 at 20:00; Stop 10/11/25 at 19:59 Bisacodyl 10 mg DAILY PRN RC; Start 09/12/25 at 20:00; Stop 10/12/25 at 19:59 Ketorolac Tromethamine 30 mg Q6H PRN IV Last administered on 09/10/25at 03:17; Start 09/09/25 at 20:00; Stop 09/14/25 at 19:59 Ferrous Fumarate 324 mg DAILY PRN PO; Start 09/09/25 at 20:00; Stop 10/09/25 at 19:59 Calcium Carbonate 500 mg Q12H PRN PO; Start 09/09/25 at 20:00; Stop 10/09/25 at 19:59 Cefazolin Sodium 2 gm Q8H IVPB Last administered on 09/10/25at 00:56; Start 09/10/25 at 01:00; Stop 09/10/25 at 09:01 Potassium Chloride 100 ml @ 100 mls/hr AD PRN IV; Start 09/09/25 at 20:00; Stop 10/09/25 at 19:59 Potassium Chloride 20 meq AD PRN PO; Start 09/09/25 at 20:00; Stop 10/09/25 at 19:59 Potassium Chloride 20 meq AD PRN PO Last administered on 09/10/25at 06:14; Start 09/09/25 at 20:00; Stop 10/09/25 at 19:59 Tramadol HCl 50 mg Q6H PRN PO; Start 09/09/25 at 20:00; Stop 09/14/25 at 19:59 Acetaminophen/ Hydrocodone Bitart Q4H PRN PO; Start 09/09/25 at 20:00; Stop 09/14/25 at 19:59 Ondansetron HCl 4 mg AD PRN IVP; Start 09/09/25 at 20:30; Stop 09/09/25 at 20:58; Status DC Metoclopramide HCl 10 mg AD PRN IVP; Start 09/09/25 at 20:30; Stop 09/09/25 at 20:58; Status DC Promethazine HCl 25 mg AD PRN IM; Start 09/09/25 at 20:30; Stop 09/09/25 at 20:58; Status DC Ketorolac Tromethamine 30 mg AD PRN IV; Start 09/09/25 at 20:30; Stop 09/09/25 at 20:58; Status DC Morphine Sulfate 2 mg AD PRN IVP; Start 09/09/25 at 20:30; Stop 09/09/25 at 20:58; Status DC Fentanyl Citrate 25 mcg Q5MIN PRN IVP; Start 09/09/25 at 20:30; Stop 09/09/25 at 20:58; Status DC Naloxone HCl 0.1 mg AD PRN IVP; Start 09/09/25 at 20:30; Stop 09/09/25 at 20:58; Status DC Midazolam HCl 2 mg STK-MED ONCE .ROUTE; Start 09/09/25 at 20:21; Stop 09/09/25 at 20:21; Status DC KELSEA LAIRD Sep 10, 2025 08:21
[2025-09-10] MEDS: PSYLLIUM SEED 1 EACH PACKET PO SCH (12:00)
--- NOTE | 2025-09-10 13:10 | NUR ---
Discharge Planning: Transfer from 1st floor yesterday. S/P POD#1, ORIF femur by Dr. Lopez. Pending acceptance at [facility] for wound care, and pending w/c from [facility], if authorized by insurance. DCP is for home tomorrow is stable.
--- NOTE | 2025-09-10 13:38 | HMCIMG ---
Fluoroscopy is utilized for the procedure. The total fluoroscopy time is 00:40.5 (mm:ss.d). The total dose area product is 0.8460 (Gycm2). The interpreting radiologist was not present during the procedure. /[place]
--- NOTE | 2025-09-10 13:38 | HMCIMG ---
Fluoroscopy is utilized for the procedure. The total fluoroscopy time is 00:47.1 (mm:ss.d). The total dose area product is 0.4467 (Gycm2). The interpreting radiologist was not present during the procedure. /[place]
[2025-09-10] MEDS: HYDROcodone/APAP 5/325 1 TAB TABLET PO PRN (13:45)
[2025-09-11] VITALS (7 sets, daily range): BP systolic 113–149; BP diastolic 64–70; PULSE 85–105; RESP 17–18; TEMP 98.3–100.7; O2SAT 98–100
[2025-09-11 05:39] LABS: NUCLEATED RED BLOOD CELLS 0.0 % (0.0-0.19); PLATELET COUNT (AUTO) 183.0 K/uL (130-400); RED BLOOD CELL COUNT(AUTO) 2.18 MIL/uL (4.50-6.20); RED CELL DISTRIBUTION WIDTH 14.9 % (11.0-15.5); WHITE BLOOD COUNT (AUTO) 7.1 K/uL (4.8-10.8)
[2025-09-11 05:57] LABS: CREATININE 0.5 mg/dL (0.5-1.3); GLOMERULAR FILTR. RATE CALC 114.0 mL/min (>90); GLUCOSE,RANDOM 113.0 mg/dL (70-105); SODIUM SERUM 136.0 mmol/L (136-145); UREA NITROGEN, BLOOD 11.0 mg/dL (7-18)
[2025-09-11 06:21] LABS: INR 1.05 (0.85-1.15)
--- NOTE | 2025-09-11 11:30 | PN ---
SUBJECTIVE: The patient is status post surgery. He is currently comfortable, afebrile. No fever or chills. No chest pain, palpitations. No nausea or vomiting. OBJECTIVE: GENERAL: Currently, he is awake, alert, oriented in person, time and place, not in distress. VITAL SIGNS: Vital signs in the chart. HEENT: Normocephalic, atraumatic. LUNGS: Clear to auscultation. HEART: S1, S2 are distant. ABDOMEN: Soft and nontender. EXTREMITIES: Left lower extremity covered with surgical gauzes. ASSESSMENT AND PLAN: * Status post ORIF of the left distal femur fracture and ORIF of the left perimalleolar ankle fracture. * Continue recommendations by Orthopedics with DVT prophylaxis, GI prophylaxis, and pulmonary prophylaxis. * The patient had a fever of 102.4 this morning. We will continue to monitor. * Follow up in a.m. with labs. DOS: 09/10/2025 TID: [id number] RECEIPT: [id number] [email or web address]
[2025-09-12] VITALS (7 sets, daily range): BP systolic 116–132; BP diastolic 66–72; PULSE 86–94; RESP 17–18; TEMP 98.3–100; O2SAT 100
[2025-09-12 04:59] LABS: NUCLEATED RED BLOOD CELLS 0.0 % (0.0-0.19); PLATELET COUNT (AUTO) 259.0 K/uL (130-400); RED BLOOD CELL COUNT(AUTO) 2.15 MIL/uL (4.50-6.20); RED CELL DISTRIBUTION WIDTH 14.9 % (11.0-15.5); WHITE BLOOD COUNT (AUTO) 7.4 K/uL (4.8-10.8)
[2025-09-12 05:08] LABS: INR 1.02 (0.85-1.15)
[2025-09-12 05:11] LABS: CREATININE 0.5 mg/dL (0.5-1.3); GLOMERULAR FILTR. RATE CALC 114.0 mL/min (>90); GLUCOSE,RANDOM 111.0 mg/dL (70-105); SODIUM SERUM 138.0 mmol/L (136-145); UREA NITROGEN, BLOOD 10.0 mg/dL (7-18)
--- NOTE | 2025-09-12 06:09 | NUR ---
MD BRY RAYMUNDO VISITED WITH PATIENT. POC DISCUSSED. NO NEW ORDERS AT THIS TIME. PATIENT MAY BE DISCHARGED FROM HIS STANDPOINT ONCE DME DELIVERED AND HOME HEALTH APPROVED. PATIENT AWARE. NO SIGNS OF DISTRESS NOTED UPON EXITING THE ROOM. CALL LIGHT WITHIN REACH. Addendum: 09/12/25 at 0611 by RANJITH HERNANDEZ RN RN Amended: Links added.
--- NOTE | 2025-09-12 09:03 | PN ---
ASSESSMENT AND PLAN: The patient is status post left ankle and left distal femur surgery. Continue recommendations by Orthopedics. Continue with DVT prophylaxis, GI prophylaxis, pulmonary prophylaxis. Plan to discharge when cleared by Orthopedics. The patient is expected to be discharged home with home health services. DOS: 09/11/2025 TID: [id number] RECEIPT: [id number] MTDD
--- NOTE | 2025-09-12 17:31 | DS ---
ADMITTING DIAGNOSES: Fall with multiple fractures including left ankle and left distal femur fracture, hypertension, and fever. DISCHARGE DIAGNOSES: Left ankle fracture status post ORIF left distal femoral fracture, stable. Fever resolved. Anemia with hemoglobin 7.7. CONDITION AT TIME OF DISCHARGE: Stable. The patient was discharged home at the patient's request with wheelchair. HOSPITAL COURSE: A 65-year-old patient was hospitalized with a diagnosis of fracture of the left ankle and left distal femur fracture. The patient had ORIF done for left distal femoral fracture, stable. The patient is going to be discharged home at this time in a wheelchair with home health physical therapy. Fever, which is the postop fever, which has resolved. Anemia is stable. TID: [id number] RECEIPT: [id number]
--- NOTE | 2025-09-12 19:30 | NUR ---
DRESSING LEFT KNEE SURGICAL DRESSING REMOVED. INCISIONS CLEAN AND DRY. PT TOLERATED WELL. PAIN MEDICATION PROVIDED. BED POSITION TO LOWEST POSITION CALL LIGHT WITH IN REACH.
[2025-09-13] VITALS: BP 131/76; PULSE 88; RESP 16; TEMP 98.3
[2025-09-13 04:00] VITALS: BP 120/66; PULSE 77; RESP 16; TEMP 98.5
[2025-09-13 08:00] VITALS: BP 119/65; PULSE 80; RESP 19; TEMP 98.1
[2025-09-13 09:10] VITALS: O2SAT 99
[2025-09-13] MEDS: FERROUS FUMARATE 324 MG TABLET PO PRN (10:12)
[2025-09-13 11:33] VITALS: BP 105/71; PULSE 80; RESP 19; TEMP 98.5
--- NOTE | 2025-09-13 14:00 | NUR ---
cm note pt states is ready for home. has help at home. [phone]. per ji rep at [facility] states office is closed. but they are working on getting elevated leg rests. will followup on sunday. per ok to dc home with pt's current w/c and keep leg straight. ems setup for home.
--- NOTE | 2025-09-13 14:15 | NUR ---
[facility] REPORT GIVEN TO JU [facility] ALL QUESTION ANSWERED. JU MADE AWARE PT LEG NEED TO REMAIN STRAIGHT. WITH KNEE IMMOBILIZER IN PLACE. JU AWARE PT IS PENDING APPROVAL AND DELIVERY FOR DME WHEELCHAIR WITH LEG REST.
--- NOTE | 2025-09-13 16:00 | NUR ---
DISCHARGE PT PIV DC'D PT VERBALIZED UNDERSTANDING OF DISCHARGE INSTRUCTIONS PT VERBALIZED UNDERSTANDING OF FOLLOW UP APPOINTMENTS PT VERBALIZED UNDERSTANDING OF INSTRUCTIONS TO KEEP LEFT LEG NON WEARING FOR 3 MONTHS POST OP AND KEEP LEG STRAIGHT USING KNEE IMMOBILIZER ALL PERSONAL BELONGINGS WERE GATHERED BY FAMILY MEMBER. PT HAD NO FURTHER QUESTIONS AT TIME OF DISCHARGE
--- NOTE | 2025-09-13 17:55 | DS ---
ADMITTING DIAGNOSES: Fall with left ankle fracture, left distal femoral fracture, tibial fracture. Status post left ankle ORIF and ORIF of the left distal femur. DISPOSITION: The patient was discharged home in stable condition. HOSPITAL COURSE: The patient was hospitalized with above and the patient had left ankle surgery and left tibial surgery. The patient is discharged home in stable condition. Follow up with primary physician as an outpatient. The patient has no other active issues. The patient's elevated blood pressure will be monitored closely. TID: [id number] RECEIPT: [id number]
== END 2025-09-13 16:00 | disposition home health service (06) | DRG 493 ==
LOC: EDH 13:17 → EDHIP 17:59 → 1MS 23:13 → 3DH 09-09 16:23
PROVIDERS: ADMIT Internal Medicine; ATTEND Internal Medicine
PROC: 0QSK04Z Reposition Left Fibula with Internal Fixation Device, Open Approach (ICD-10-PCS; 2025-09-09)
PROC: 3E0T3BZ Introduction of Anesthetic Agent into Peripheral Nerves and Plexi, Percutaneous Approach (ICD-10-PCS; 2025-09-09)
PROC: 0QSC04Z Reposition Left Lower Femur with Internal Fixation Device, Open Approach (ICD-10-PCS; principal; 2025-09-09 17:45)
PROC: 0QSH04Z Reposition Left Tibia with Internal Fixation Device, Open Approach (ICD-10-PCS; 2025-09-09 17:45)
DX: S82.852A Displaced trimalleolar fracture of left lower leg, initial encounter for closed fracture (principal); S72.402A Unspecified fracture of lower end of left femur, initial encounter for closed fracture; D64.9 Anemia, unspecified; E87.6 Hypokalemia; S93.401A Sprain of unspecified ligament of right ankle, initial encounter; I10 Essential (primary) hypertension; Z21 Asymptomatic human immunodeficiency virus [HIV] infection status; M81.0 Age-related osteoporosis without current pathological fracture; R50.82 Postprocedural fever; Z96.641 Presence of right artificial hip joint; W18.39XA Other fall on same level, initial encounter; Y93.89 Activity, other specified; Y92.89 Other specified places as the place of occurrence of the external cause; Y99.8 Other external cause status
CPT/HCPCS: 36415; 73552; 73590; 73600; 73610; 73620; 76000; 80048; 82550; 82948; 83735; 85025; 85027; 85610; 85730; 86850; 86900; 86901; 86923; 96374; 96375; 99285; G0378; J0696; J1171; J1650; J1885; J2003; J2250; J2704; J3010; J3490; J7030; A4222; A4223; A4600; A4649; A4930; A6223; A6450; C1713; J0690